=== PATIENT | male | born 1985 | race African-American/Black ===

== ENCOUNTER 2022-05-01 14:10 | Emergency (ER) | payer BC ==
--- OUTSIDE RECORDS SUMMARY | 2022-05-01 14:28 | XMS REPORT | Continuity of Care Document ---
:1985 Author Organization [facility] t Address [address] [place] [address] Care Team Providers Name Role Phone Chato Phillips Attending Clinician Chato Phillips Admitting Clinician Problems Condition Condition Condition Status Onset Resolution Last Treating Co mments Source Name Details Category Date Date Treatment Clinician Date Knee pain, Knee Condition Active 2013-052014-03-22 Memoria bilateral pain, 0-28 12:50:00 l bilateral 00:00: Sergey Active 00 03/22/2014 Condition 03/22/2014 [facility] Obesity Obesity Condition Active 2013-052014-03-22 Memoria Active 0-28 12:50:00 l 03/22/2014 00:00: Ferdinand n Condition 00 03/22/2014 [facility] Hyperlipid Hyperlipi Condition Active 2013-052014-03-22 Memoria emia demia 0-28 12:50:00 l Active 00:00: Sergey 03/22/2014 00 Condition 03/22/2014 [facility] BODY MASS BODY MASS Condition Active 2012-052014-03-22 Memoria INDEX INDEX 2-10 12:50:00 l 39.0-39.9 39.0-39.9 00:00: Herm raquel ADULT ADULT 00 Active 05/04/2013 Condition 03/22/2014 [facility] FURUNCLE FURUNCLE Condition Active 2012-052014-03-22 Memoria WITH WITH 2-10 12:50:00 l ABSCESS ABSCESS 00:00: Sergey Active 00 05/04/2013 Condition 03/22/2014 [facility] GI GI Condition Active 2012-052014-03-22 Mem oria BLEEDING BLEEDING 0-24 12:50:00 l Active 00:00: Sergey 03/18/2013 00 Condition 03/22/2014 [facility] ROTATOR ROTATOR Condition Active 2012-052014-03-22 Memoria CUFF CUFF 0 12:50:00 l SYNDROME, SYNDROME, 00:00: Herm raquel RIGHT RIGHT 00 Active 03/18/2013 Condition 03/22/2014 [facility] ERECTILE ERECTILE Condition Active 2012-052014-03-22 Memoria DYSFUNCTIO DYSFUNCTIO 0 12:50:00 l N, ORGANIC N, ORGANIC 00:00: He rmann Active 00 03/18/2013 Condition 03/22/2014 [facility] CHEST CHEST Condition Active 2014-03-22 Mem oria PAIN, PAIN, 12-23 12:50:00 l ATYPICAL ATYPICAL 00:00: Ferdinand fishman Active 00 12/23/2012 Condition 03/22/2014 [facility] HYPERTENSI HYPERTENS Condition Active 2014-03-22 Memoria ON, BENIGN ION, 01-12 12:50:00 l ESSENTIAL BENIGN 00:00: Sergey ESSENTIAL 00 Active 01/13/2012 Condition 03/22/2014 [facility] DIABETES DIABETES Condition Active 2014-03-22 Memoria MELLITUS, MELLITUS, 09-26 12:50:00 l TYPE II, TYPE II, 00:00: Ferdinand fishman UNCONTROLL UNCONTROLL 00 ED ED Active 09/27/2011 Condition 03/22/2014 [facility] DYSLIPOPRO DYSLIPOPR Condition Active 2014-03-22 Memoria TEINEMIA OTEINEMIA - 12:50:00 l Active 00:00: Sergey 09/27/2011 00 Condition 03/22/2014 [facility] HEALTH HEALTH Condition Active 2014-03-22 Me luke MAINTENANC MAINTENANC 5- 12:50:00 l E EXAM E EXAM 00:00: [place] Active 00 09/26/2011 Condition 03/22/2014 [facility] FATIGUE FATIGUE Condition Active 2014-03-22 Memoria Active 09-25 12:50:00 l 09/26/2011 00:00: Ferdinand fishman Condition 00 03/22/2014 [facility] SLEEP SLEEP Condition Active 2014-03-22 Mem oria APNEA APNEA - 12:50:00 l Active 00:00: [place] 09/26/2011 00 Condition 03/22/2014 [facility] Hypertensi Hypertens Problem Active 2019-08-08 Memoria ve wilfredo 1- 04:01:08 l disorder, disorder, 00:00: Herm raquel systemic systemic 00 arterial arterial (disorder) (disorder) Active 05/26/2010 Problem 08/08/2019 [facility] Chronic Chronic Problem Active 2019-08-08 Me moria sinusitis sinusitis 04:01:08 l (disorder) (disorder) He rmann Active Problem 08/08/2019 [facility] Deviated Deviated Problem Active 2019-08-08 Memoria nasal nasal 04:01:08 l septum septum [place] (disorder) (disorder) Active Problem 08/08/2019 [facility] Diabetes Diabetes Problem Active 2019-08-08 Memoria mellitus mellitus 04:01:08 l (disorder) (disorder) He rmann Active Problem 08/08/2019 hgb A1C 9.2 [facility] Hyperchole Problem Active 2019-08-08 M emoria sterolemia Hyperchole 04:01:08 l (disorder) sterolemia He rmann (disorder) Active Problem 08/08/2019 [facility] Body mass Body mass Problem Active 2016-09-17 Memoria index index 04:10:09 l (BMI) of (BMI) of Ferdinand fishman 40.0-44.9 40.0-44.9 in adult in adult Active Problem 09/17/2016 2..840.1 .[id number]. [id number] DM w/o DM w/o Diagnosis Active 2016-09-17 Me moria complicati complicati 04:10:09 l on type on type Sergey II, II, uncontroll uncontroll ed ed Active Diagnosis 09/17/2016 2.16.840.1 [id number]. [id number] 89 Benign Benign Problem Active 2016-09-17 Jeff sriram essential essential 04:10:09 l hypertensi hypertensi He rmann on on Active Problem 09/17/2016 2.16.840.1 .[id number]. [id number] 89 Elevated Elevated Diagnosis Active 2016-08-15 Memoria blood blood 04:10:31 l pressure pressure Ferdinand n reading reading Active Diagnosis 08/15/2016 2.16.840.1 .[id number]. [id number] 89 Seasonal Seasonal Problem Active 2016-09-17 Memoria allergic allergic 04:10:09 l rhinitis rhinitis Ferdinand n due to due to pollen pollen Active Problem 09/17/2016 2.16.840.1 .[id number]. [id number] 89 History of Past Illness Condition Condition Condition Status Onset Resolution Last Treating Co mments Source Name Details Category Date Date Treatment Clinician Date Chronic Chronic Problem 2019-08-08 2019-08-08 Memoria pansinusit pansinusit 3-13 04:01:08 04:01:08 l is is 17:00: [place] 08/06/2019 00 0 [facility] ABSCESS, ABSCESS, Condition Inactiv 2014-03-22 2014-03-22 Memoria GLUTEAL GLUTEAL e 10-20 12:50:00 12:50:00 l Inactive 00:00: Sergey 10/20/2013 00 Condition 03/22/2014 [facility] UPPER UPPER Condition Inactiv 2014-03-22 2014-03-22 Memoria RESPIRATOR RESPIRATOR e -16 12:50:00 12:50:00 l Y Y 00:00: Sergey INFECTION INFECTION 00 Inactive 06/10/2012 Condition 03/22/2014 [facility] ELEVATED ELEVATED Condition Inactiv 2014-03-22 2014-03-22 Memoria BP READING BP READING e 09-25 12:50:00 12:50:00 l WITHOUT DX WITHOUT DX 00:00: Genaro roth HYPERTENSI HYPERTENSI 00 ON ON Inactive 09/26/2011 Condition 03/22/2014 [facility] SCREENING SCREENING Condition Inactiv 2014-03-22 2014-03-22 Memoria FOR LIPOID FOR LIPOID e 09-25 12:50:00 12:50:00 l DISORDERS DISORDERS 00:00: Herm raquel Inactive 00 09/26/2011 Condition 03/22/2014 [facility] Allergies, Adverse Reactions, Alerts This patient has no known allergies or adverse reactions. Medications Ordered Filled Start Stop Current Ordering Indication Dosage Frequency Signature Comments Components Source Medication Medication Date Date Medication? Clinician (SIG) Name Name Oxymetazoli Yes 2 sprays, M emoria ne 3-13 [place], l hydrochlori 17:40: Nasal, Herm raquel de 0.5 00 q20min, MG/ML Nasal order [place] duration: [Afrin] 3 doses, first dose 08/06/19 12:40:00 CDT, stop date 08/06/19 13:39:00 CDT, each nostril Oxymetazoli 2020-0 Yes 2 sprays, M emoria ne 3-13 [place], l hydrochlori 17:40: Nasal, Herm raquel de 0.5 00 q20min, MG/ML Nasal order [place] duration: [Afrin] 3 doses, first dose 08/06/19 12:40:00 CDT, stop date 08/06/19 13:39:00 CDT, each nostril Misc 2020-0 No 200 mL, Memoria Medication 3-13 Soln-IV, l 17:30: IV, Once, Sergey 00 first dose 08/06/19 12:30:00 CDT, stop date 08/06/19 12:30:00 CDT Misc 2020-0 No 200 mL, Memoria Medication 3-13 Soln-IV, l 17:30: IV, Once, [place] first dose 08/06/19 12:30:00 CDT, stop date 08/06/19 12:30:00 CDT fentaNYL 2020-0 No 50 mcg = 1 Mem oria 3-13 mL, l 17:23: Injection, [place] 00 IV, Once, first dose 08/06/19 12:23:00 CDT, stop date 08/06/19 12:23:00 CDT ondansetron 2020-0 No 4 mg = 2 Me moria 3-13 mL, l 17:23: Injection, [place] 00 IV, Once, first dose 08/06/19 12:23:00 CDT, stop date 08/06/19 12:23:00 CDT fentaNYL 2020-0 No 50 mcg = 1 Mem oria 3-13 mL, l 17:23: Injection, Sergey 00 IV, Once, first dose 08/06/19 12:23:00 CDT, stop date 08/06/19 12:23:00 CDT ondansetron 2020-0 No 4 mg = 2 Me moria 3-13 mL, l 17:23: Injection, Sergey 00 IV, Once, first dose 08/06/19 12:23:00 CDT, stop date 08/06/19 12:23:00 CDT fentaNYL 2020-0 No 50 mcg = 1 Mem oria 3-13 mL, l 17:13: Injection, [place] 00 IV, Once, first dose 08/06/19 12:13:00 CDT, stop date 08/06/19 12:13:00 CDT fentaNYL 2020-0 No 50 mcg = 1 Mem oria 3-13 mL, l 17:13: Injection, Sergey 00 IV, Once, first dose 08/06/19 12:13:00 CDT, stop date 08/06/19 12:13:00 CDT esmolol 2020-0 No 50 mg = 5 Memor ia 3-13 mL, l 17:12: Injection, [place] 00 IV, Once, first dose 08/06/19 12:12:00 CDT, stop date 08/06/19 12:12:00 CDT esmolol 2020-0 No 50 mg = 5 Memor ia 3-13 mL, l 17:12: Injection, Sergey 00 IV, Once, first dose 08/06/19 12:12:00 CDT, stop date 08/06/19 12:12:00 CDT propofol 2020-0 No 729 mg = Memor ia 3-13 72.9 mL, l 17:05: Emulsion, [place] 00 IV, Once, first dose 08/06/19 12:05:00 CDT, stop date 08/06/19 12:05:00 CDT SUFentanil 2020-0 No 50 mcg = 1 M emoria + propofol 3-13 mL, l 500 mg 17:05: Injection, Tisha nn 00 IV, Once, first dose 08/06/19 12:05:00 CDT, stop date 08/06/19 12:05:00 CDT ketamine + 2020-0 No 125 mg = Mem oria propofol 3-13 2.5 mL, l 1250 mg 17:05: Injection, Herm raquel 00 IV, Once, first dose 08/06/19 12:05:00 CDT, stop date 08/06/19 12:05:00 CDT propofol 2020-0 No 729 mg = Memor ia 3-13 72.9 mL, l 17:05: Emulsion, [place] 00 IV, Once, first dose 08/06/19 12:05:00 CDT, stop date 08/06/19 12:05:00 CDT SUFentanil 2020-0 No 50 mcg = 1 M emoria + propofol 3-13 mL, l 500 mg 17:05: Injection, Tisha nn 00 IV, Once, first dose 08/06/19 12:05:00 CDT, stop date 08/06/19 12:05:00 CDT ketamine + 2020-0 No 125 mg = Mem oria propofol 3-13 2.5 mL, l 1250 mg 17:05: Injection, Herm raquel IV, Once, first dose 08/06/19 12:05:00 CDT, stop date 08/06/19 12:05:00 CDT Misc 2020-0 No 1,000 mL, Memoria Medication 3-13 Soln-IV, l 16:36: IV, Once, first dose 08/06/19 11:36:00 CDT, stop date 08/06/19 11:36:00 CDT Misc 2020-0 No 1,000 mL, Memoria Medication 3-13 Soln-IV, l 16:36: IV, Once, first dose 08/06/19 11:36:00 CDT, stop date 08/06/19 11:36:00 CDT ePHEDrine 2020-0 No 10 mg = Memor ia 3-13 0.2 mL, l 13:28: Injection, [place] 00 IV, Once, first dose 08/06/19 8:28:00 CDT, stop date 08/06/19 8:28:00 CDT ePHEDrine 2020-0 No 10 mg = Memor ia 3-13 0.2 mL, l 13:28: Injection, Sergey 00 IV, Once, first dose 08/06/19 8:28:00 CDT, stop date 08/06/19 8:28:00 CDT Misc 2020-0 No 1,000 mL, Memoria Medication 3-13 Soln-IV, l 13:25: IV, Once, first dose 08/06/19 8:25:00 CDT, stop date 08/06/19 8:25:00 CDT Misc 2020-0 No 1,000 mL, Memoria Medication 3-13 Soln-IV, l 13:25: IV, Once, first dose 08/06/19 8:25:00 CDT, stop date 08/06/19 8:25:00 CDT ePHEDrine 2020-0 No 10 mg = Memor ia 3-13 0.2 mL, l 13:23: Injection, IV, Once, first dose 08/06/19 8:23:00 CDT, stop date 08/06/19 8:23:00 CDT ePHEDrine 2020-0 No 10 mg = Memor ia 3-13 0.2 mL, l 13:23: Injection, IV, Once, first dose 08/06/19 8:23:00 CDT, stop date 08/06/19 8:23:00 CDT ePHEDrine 2020-0 No 5 mg = 0.1 Me moria 3-13 mL, l 13:17: Injection, IV, Once, first dose 08/06/19 8:17:00 CDT, stop date 08/06/19 8:17:00 CDT ePHEDrine 2020-0 No 5 mg = 0.1 Me moria 3-13 mL, l 13:17: Injection, IV, Once, first dose 08/06/19 8:17:00 CDT, stop date 08/06/19 8:17:00 CDT acetaminoph 2020-0 No 1,000 mg, M emoria en 3-13 Soln-IV, l 13:16: IV, Once, first dose 08/06/19 8:16:00 CDT, stop date 08/06/19 8:16:00 CDT glycopyrrol 2020-0 No 0.2 mg = 1 Memoria ate 3-13 mL, l 13:16: Injection, IV, Once, first dose 08/06/19 8:16:00 CDT, stop date 08/06/19 8:16:00 CDT acetaminoph 2020-0 No 1,000 mg, M emoria en 3-13 Soln-IV, l 13:16: IV, Once, first dose 08/06/19 8:16:00 CDT, stop date 08/06/19 8:16:00 CDT glycopyrrol 2020-0 No 0.2 mg = 1 Memoria ate 3-13 mL, l 13:16: Injection, Sergey 00 IV, Once, first dose 08/06/19 8:16:00 CDT, stop date 08/06/19 8:16:00 CDT dexamethaso 2020-0 No 8 mg = 2 Me moria ne 3-13 mL, l 13:06: Injection, [place] 00 IV, Once, first dose 08/06/19 8:06:00 CDT, stop date 08/06/19 8:06:00 CDT dexamethaso 2020-0 No 8 mg = 2 Me moria ne 3-13 mL, l 13:06: Injection, [place] 00 IV, Once, first dose 08/06/19 8:06:00 CDT, stop date 08/06/19 8:06:00 CDT ceFAZolin 2020-0 No 3 gm, Memoria 3-13 Soln-IV, l 13:01: IV Sergey 00 Piggyback, Once, first dose 08/06/19 8:01:00 CDT, stop date 08/06/19 8:01:00 CDT ceFAZolin 2020-0 No 3 gm, Memoria 3-13 Soln-IV, l 13:01: IV [place] 00 Piggyback, Once, first dose 08/06/19 8:01:00 CDT, stop date 08/06/19 8:01:00 CDT propofol 2020-0 No 200 mg = Memor ia 3-13 20 mL, l 12:51: Emulsion, [place] IV, Once, first dose 08/06/19 7:51:00 CDT, stop date 08/06/19 7:51:00 CDT lidocaine 2020-0 No 100 mg = 5 Me moria 3-13 mL, l 12:51: Injection, Sergey 00 IV, Once, first dose 08/06/19 7:51:00 CDT, stop date 08/06/19 7:51:00 CDT rocuronium 2020-0 No 5 mg = 0.5 M emoria 3-13 mL, l 12:51: Injection, [place] 00 IV, Once, first dose 08/06/19 7:51:00 CDT, stop date 08/06/19 7:51:00 CDT succinylcho 2020-0 No 180 mg = 9 Memoria line 3-13 mL, l 12:51: Injection, [place] 00 IV, Once, first dose 08/06/19 7:51:00 CDT, stop date 08/06/19 7:51:00 CDT propofol 2020-0 No 200 mg = Memor ia 3-13 20 mL, l 12:51: Emulsion, [place] 00 IV, Once, first dose 08/06/19 7:51:00 CDT, stop date 08/06/19 7:51:00 CDT lidocaine 2020-0 No 100 mg = 5 Me moria 3-13 mL, l 12:51: Injection, Sergey 00 IV, Once, first dose 08/06/19 7:51:00 CDT, stop date 08/06/19 7:51:00 CDT rocuronium 2020-0 No 5 mg = 0.5 M emoria 3-13 mL, l 12:51: Injection, [place] 00 IV, Once, first dose 08/06/19 7:51:00 CDT, stop date 08/06/19 7:51:00 CDT succinylcho 2020-0 No 180 mg = 9 Memoria line 3-13 mL, l 12:51: Injection, [place] 00 IV, Once, first dose 08/06/19 7:51:00 CDT, stop date 08/06/19 7:51:00 CDT fentaNYL 2020-0 No 50 mcg = 1 Mem oria 3-13 mL, l 12:50: Injection, [place] 00 IV, Once, first dose 08/06/19 7:50:00 CDT, stop date 08/06/19 7:50:00 CDT fentaNYL 2020-0 No 50 mcg = 1 Mem oria 3-13 mL, l 12:50: Injection, [place] 00 IV, Once, first dose 08/06/19 7:50:00 CDT, stop date 08/06/19 7:50:00 CDT midazolam 2020-0 No 2 mg = 2 Jeff sriram 3-13 mL, l 12:41: Injection, Sergey 00 IV, Once, first dose 08/06/19 7:41:00 CDT, stop date 08/06/19 7:41:00 CDT fentaNYL 2020-0 No 100 mcg = Jeff sriram 3-13 2 mL, l 12:41: Injection, [place] 00 IV, Once, first dose 08/06/19 7:41:00 CDT, stop date 08/06/19 7:41:00 CDT midazolam 2020-0 No 2 mg = 2 Jeff sriram 3-13 mL, l 12:41: Injection, Sergey 00 IV, Once, first dose 08/06/19 7:41:00 CDT, stop date 08/06/19 7:41:00 CDT fentaNYL 2020-0 No 100 mcg = Jeff sriram 3-13 2 mL, l 12:41: Injection, [place] 00 IV, Once, first dose 08/06/19 7:41:00 CDT, stop date 08/06/19 7:41:00 CDT LR 1,000 mL 2020-0 No 1,000 mL, M emoria 3-13 IV, 75 l 12:13: mL/hr, start date 08/06/19 7:13:00 CDT, 2.35, m2 Saline Lock 2020-0 No 10 mL, Jeff sriram Flush 3-13 Soln, IV l 12:13: Push, As Indicated PRN for flush, first dose 08/06/19 7:13:00 CDT Robinul 2020-0 No 0.2 mg = 1 Jeff sriram 3-13 mL, l 12:13: Injection, [place] 00 IV Push, Once PRN for bradycardi a, first dose 08/06/19 7:13:00 CDT Morphine 2020-0 No 2 mg = 0.2 Mem oria 3-13 mL, l 12:13: Injection, [place] 00 IV Push, q5min PRN for pain, first dose 08/06/19 7:13:00 CDT Dilaudid 2020-0 No 0.5 mg = Memor ia 3-13 0.5 mL, l 12:13: Injection, Sergey 00 IV Push, q10min PRN for pain severe (7-10), first dose 08/06/19 7:13:00 CDT Demerol HCl 2020-0 No 12.5 mg = M emoria 3-13 0.5 mL, l 12:13: Injection, [place] 00 IV Push, Once PRN for shivers, first dose 08/06/19 7:13:00 CDT Levalbutero 2020-0 No 0.63 mg = M emoria l 0.21 3-13 3 mL, l MG/ML 12:13: Soln, NEB, Ferdinand n Inhalant 00 Once PRN Solution for [Xopenex] wheezing, first dose 08/06/19 7:13:00 CDT Ondansetron 2019-0 No 4 mg = 2 Me moria 3-13 mL, l 12:13: Injection, IV Push, q15min PRN for nausea, order duration: 2 doses, first dose 08/06/19 7:13:00 CDT, stop date Limited # of times Promethazin 2020-0 No 12.5 mg = M emoria e 3-13 0.5 mL, l 12:13: Injection, IM, Once PRN for vomiting, first dose 08/06/19 7:13:00 CDT Labetalol 2019-0 No 5 mg = 1 Jeff sriram 3-13 mL, l 12:13: Injection, IV Push, As Indicated PRN for hypertensi on, first dose 08/06/19 7:13:00 CDT Hydralazine 2019-0 No 10 mg = Mem oria 3-13 0.5 mL, l 12:13: Injection, IV Push, As Indicated PRN for hypertensi on, first dose 08/06/19 7:13:00 CDT Diphenhydra 2019-0 No 25 mg = Mem oria mine 3-13 0.5 mL, l 12:13: Injection, IV Push, Once PRN for itching, first dose 08/06/19 7:13:00 CDT LR 1,000 mL 2020-0 No 1,000 mL, M emoria 3-13 IV, 75 l 12:13: mL/hr, start date 08/06/19 7:13:00 CDT, 2.35, m2 Saline Lock 2020-0 No 10 mL, Jeff sriram Flush 3-13 Soln, IV l 12:13: Push, As Indicated PRN for flush, first dose 08/06/19 7:13:00 CDT Robinul 2020-0 No 0.2 mg = 1 Jeff sriram 3-13 mL, l 12:13: Injection, [place] 00 IV Push, Once PRN for bradycardi a, first dose 08/06/19 7:13:00 CDT Morphine 2020-0 No 2 mg = 0.2 Mem oria 3-13 mL, l 12:13: Injection, [place] 00 IV Push, q5min PRN for pain, first dose 08/06/19 7:13:00 CDT Dilaudid 2020-0 No 0.5 mg = Memor ia 3-13 0.5 mL, l 12:13: Injection, [place] 00 IV Push, q10min PRN for pain severe (7-10), first dose 08/06/19 7:13:00 CDT Demerol HCl 2020-0 No 12.5 mg = M emoria 3-13 0.5 mL, l 12:13: Injection, Sergey 00 IV Push, Once PRN for shivers, first dose 08/06/19 7:13:00 CDT Levalbutero 2020-0 No 0.63 mg = M emoria l 0.21 3-13 3 mL, l MG/ML 12:13: Soln, NEB, Ferdinand n Inhalant 00 Once PRN Solution for [Xopenex] wheezing, first dose 08/06/19 7:13:00 CDT Ondansetron 2020-0 No 4 mg = 2 Me moria 3-13 mL, l 12:13: Injection, [place] 00 IV Push, q15min PRN for nausea, order duration: 2 doses, first dose 08/06/19 7:13:00 CDT, stop date Limited # of times Promethazin 2020-0 No 12.5 mg = M emoria e 3-13 0.5 mL, l 12:13: Injection, [place] 00 IM, Once PRN for vomiting, first dose 08/06/19 7:13:00 CDT Labetalol 2020-0 No 5 mg = 1 Jeff sriram 3-13 mL, l 12:13: Injection, Sergey 00 IV Push, As Indicated PRN for hypertensi on, first dose 08/06/19 7:13:00 CDT Hydralazine 2020-0 No 10 mg = Mem oria 3-13 0.5 mL, l 12:13: Injection, Sergey 00 IV Push, As Indicated PRN for hypertensi on, first dose 08/06/19 7:13:00 CDT Diphenhydra 2020-0 No 25 mg = Mem oria mine 3-13 0.5 mL, l 12:13: Injection, Sergey 00 IV Push, Once PRN for itching, first dose 08/06/19 7:13:00 CDT LR 1,000 mL 2020-0 No 1,000 mL, M emoria 3-13 IV, 30 l 11:03: mL/hr, Sergey start date 08/06/19 6:03:00 CDT, 2.36, m2 Lidocaine 2020-0 No 0.2 mL, Memor ia 2% 0.2 mL 3-13 Injection, l IV Start 11:03: Subcutaneo [facility] [[facility]] 00 us, Once PRN for other (see comment), first dose 08/06/19 6:03:00 CDT Oxymetazoli 2020-0 No 2 sprays, M emoria ne 3-13 [place], l hydrochlori 11:03: Nasal, Pre [place] de 0.5 00 Op, first MG/ML Nasal dose [place] 08/06/19 [Afrin] 6:03:00 CDT LR 1,000 mL 2020-0 No 1,000 mL, M emoria 3-13 IV, 30 l 11:03: mL/hr, start date 08/06/19 6:03:00 CDT, 2.36, m2 Lidocaine 2020-0 No 0.2 mL, Memor ia 2% 0.2 mL -13 Injection, l IV Start 11:03: Subcutaneo [facility] [[facility]] 00 us, Once PRN for other (see comment), first dose 08/06/19 6:03:00 CDT Oxymetazoli 2020-0 No 2 sprays, M emoria ne 3-13 [place], l hydrochlori 11:03: Nasal, Pre Sergey de 0.5 00 Op, first MG/ML Nasal dose [place] 08/06/19 [Afrin] 6:03:00 CDT simvastatin 2020-0 Yes 20 mg = 1 M emoria 20 mg oral 2-26 tabs, l tablet 21:50: Oral, [place] 00 Daily, high cholestero l simvastatin 2020-0 Yes 20 mg = 1 M emoria 20 mg oral 2- tabs, l tablet 21:50: Oral, Daily, high cholestero l dapaglifloz 2020-0 Yes 10 mg = 1 M emoria in 2-26 tabs, l propanediol 21:49: Oral, Tisha nn 10 MG Oral 00 Daily, DM Tablet [xiga] lisinopril 2020-0 Yes 20 mg = 1 Me moria 20 mg oral - tabs, l tablet 21:49: Oral, [place] 00 Daily, HTN dapaglifloz 2020-0 Yes 10 mg = 1 M emoria in - tabs, l propanediol 21:49: Oral, Tisha nn 10 MG Oral 00 Daily, DM Tablet [Farxiga] lisinopril 2020-0 Yes 20 mg = 1 Me moria 20 mg oral 2- tabs, l tablet 21:49: Oral, Daily, HTN Flonase Yes Arnold 2 spray in Me moria 4-25 [place] each l 04:10: nostril Medrol Yes Arnold as Memoria (Jeremy) 4-25 [place] directed l 04:10: Flonase Yes Arnold 2 spray in Me moria 4-25 [place] each l 04:10: nostril Medrol Yes Arnold as Memoria (Jeremy) 4-25 [place] directed l 04:10: Zyrtec-D 0 Yes Arnold 1 tablet Mem oria Allergy & 4-24 [place] l Congestion 00:00: Zyrtec-D 0 Yes Arnold 1 tablet Mem oria Allergy & 4-24 [place] l Congestion 00:00: Xigduo XR 0 Yes Arnold 1 tablet Me moria 3-22 [place] l 00:00: Losartan Yes Arnold 1 tablet Mem oria Potassium 3-22 [place] l 00:00: Xigduo XR 0 Yes Arnold 1 tablet Me moria 3-22 [place] l 00:00: Losartan Yes Arnold 1 tablet Mem oria Potassium 3-22 [place] l 00:00: [place] Blood Yes Arnold as Memoria Glucose 2-22 [place] directed l Test Strip 00:00: Sergey 00 Lancets Yes Arnold as Memoria 2-22 [place] directed l 00:00: [place] Yes Arnold 1 tablet Jeff sriram 2-22 [place] with meals l 00:00: [place] Blood Yes Arnold as Memoria Glucose 2-22 [place] directed l Monitor 00:00: Sergey System [place] Yes Arnold 1 tablet Jeff sriram 2-22 [place] with meals l 00:00: [place] Blood Yes Arnold as Memoria Glucose 2-22 [place] directed l Monitor 00:00: [place] System Blood Yes Arnold as Memoria Glucose 2-22 [place] directed l Test Strip 00:00: [place] 00 Lancets Yes Arnold as Memoria 2-22 [place] directed l 00:00: Sergey 00 SIMVASTATIN 2013- Yes Take one Me moria 40 MG TABS 0-29 tab po at l 00:00: bedtime for cholestero l SIMVASTATIN 2013-05 Yes Take one Me moria 40 MG TABS 0-29 tab po at l 00:00: bedtime for cholestero l METFORMIN 2013-05 Yes 1 PO twice Me moria HCL 1000 MG 0-28 a day for l TABS 00:00: blood sugar LISINOPRIL 2013-05 Yes one by Memor ia 10 MG TABS 0-28 mouth l 00:00: daily for Sergey blood pressure ONETOUCH 2013-05 Yes test bid Memor ia ULTRASOFT 0-28 l LANCETS 00:00: [place] [facility] [place] 2013-05 Yes Use with [facility] ULTRA BLUE 0-28 glucometer l STRP 00:00: to check blood sugars VOLTAREN 1 2013-05 Yes Apply over M [facility] % GEL 0-28 affected l 00:00: area 2-3 [place] 00 times a day for pain METFORMIN 2013-05 Yes 1 PO twice Me [facility] HCL 1000 MG 0-28 a day for l TABS 00:00: blood [place] 00 sugar LISINOPRIL 2013-05 Yes one by [facility] 10 MG TABS 0-28 mouth l 00:00: daily for Sergey 00 blood pressure ONETOUCH 2013-05 Yes test bid [facility] ULTRASOFT 0-28 l LANCETS 00:00: [place] MISC 00 ONETOUCH 2013-05 Yes Use with [facility] ULTRA BLUE 0-28 glucometer l STRP 00:00: to check [place] 00 blood sugars VOLTAREN 1 2013-05 Yes Apply over M [facility] % GEL 0-28 affected l 00:00: area 2-3 [place] 00 times a day for pain CEPHALEXIN No 1 po 4 [facility] 500 MG CAPS 6-03 times a l 00:00: day x 7 [place] 00 days BACTRIM DS No 2po twice Me [facility] TABS 6-03 a dayx 7 l 00:00: days [place] CEPHALEXIN No 1 po 4 [facility] 500 MG CAPS 6-03 times a l 00:00: day x 7 [place] 00 days BACTRIM DS No 2po twice [facility] TABS 6-03 a dayx 7 l 00:00: days [place] 00 [facility] 50 No take one Jeff sriram MG TABS 5-28 tablet l 00:00: every 8hrs Sergey 00 as needed for pain. CLEOCIN 150 No take two Me moria MG CAPS 5-28 tablets l 00:00: every 8 [place] 00 hours for infection. ADVIL TABS No as needed Me [facility] 5-28 l 00:00: [place] 00 ULTRA 50 Yes take one Jeff sriram MG TABS 5-28 tablet l 00:00: every 8hrs Sergey 00 as needed for pain. ULTRA 50 No take one Jeff sriram MG TABS 5-28 tablet l 00:00: every 8hrs [place] 00 as needed for pain. CLEOCIN 150 No take two Me moria MG CAPS 5-28 tablets l 00:00: every 8 [place] 00 hours for infection. ADVIL TABS No as needed Me [facility] 5-28 l 00:00: Serge[place] 00 ULTRA 50 Yes take one Jeff sriram MG TABS 5-28 tablet l 00:00: every 8hrs [facility] 00 as needed for pain. HYDROCODONE 2012-05 No 1 tab, q4h [facility] -ACETAMINOP 2-13 for pain l HEN 5-325 00:00: Sergey MG TABS 00 HYDROCODONE 2012-05 No 1 tab, q4h [facility] -ACETAMINOP 2-13 for pain l HEN 5-325 00:00: [place] MG TABS 00 HYDROCODONE 2012-05 No 1 tab, q4h [facility] -ACETAMINOP 2-13 for pain l HEN 5-325 00:00: Sergey MG TABS 00 HYDROCODONE 2012-05 No 1 tab, q4h [facility] -ACETAMINOP 2-13 for pain l HEN 5-325 00:00: Sergey MG TABS 00 HYDROCODONE 2012-05 No 1 tab, q4h [facility] -ACETAMINOP 2-13 for pain l HEN 5-325 00:00: Sergey MG TABS 00 HYDROCODONE 2012-05 No 1 tab, q4h [facility] -ACETAMINOP 2-13 for pain l HEN 5-325 00:00: Sergey MG TABS 00 BACTRIM DS 2012-05 No Take 1 tab M emoria 800-160 MG 2-10 po bid x10 l TABS 00:00: days for [place] 00 abscess. CHLORHEXIDI 2012-05 No Apply to Ri moria NE 2-10 affected l GLUCONATE 00:00: area daily He rmann 20 % SOLN 00 when showering. BACTRIM DS 2012-05 No Take 1 tab M emoria 800-160 MG 2-10 po bid x10 l TABS 00:00: days for [place]y 00 abscess. CHLORHEXIDI 2012-05 No Apply to Ri moria NE 2-10 affected l GLUCONATE 00:00: area daily He rmann 20 % SOLN 00 when showering. BACTRIM DS 2012-05 No Take 1 tab M emoria 800-160 MG 2-10 po bid x10 l TABS 00:00: days for [place] 00 abscess. CHLORHEXIDI 2012-05 No Apply to Ri moria NE 2-10 affected l GLUCONATE 00:00: area daily He rmann 20 % SOLN 00 when showering. BACTRIM DS 2012-05 No Take 1 tab M emoria 800-160 MG 2-10 po bid x10 l TABS 00:00: days for Sergey 00 abscess. CHLORHEXIDI 2012-05 No Apply to Me moria NE 2-10 affected l GLUCONATE 00:00: area daily He rmann 20 % SOLN 00 when showering. VIAGRA 2012-05 No 1/2 tablet M emoria MG TABS 0-24 po 30 l 00:00: minutes [place] 00 prior to sexual activity CYCLOBENZAP 2012-05 No 1 tab po Me moria RINE HCL 0-24 qhs prn - l 7.5 MG TABS 00:00: pain Ferdinand n 00 VIAGRA 2012-05 No 1/2 tablet M emoria MG TABS 0-24 po 30 l 00:00: minutes Sergey 00 prior to sexual activity CYCLOBENZAP 2012-05 No 1 tab po Me moria RINE HCL 0-24 qhs prn - l 7.5 MG TABS 00:00: pain Ferdinand n VIAGRA 2012-05 Yes 1/2 tablet M emoria MG TABS 0-24 po 30 l 00:00: minutes [place] 00 prior to sexual activity CYCLOBENZAP 2012-05 Yes 1 tab po Me moria RINE HCL 0-24 qhs prn - l 7.5 MG TABS 00:00: pain Ferdinand n 00 CYCLOBENZAP 2012-05 No 1 tab po Me moria RINE HCL 0-24 qhs prn - l 7.5 MG TABS 00:00: pain Ferdinand n VIAGRA 2012-05 No 1/2 tablet M emoria MG TABS 0-24 po 30 l 00:00: minutes Sergey 00 prior to sexual activity CYCLOBENZAP 2012-05 No 1 tab po Me moria RINE HCL 0-24 qhs prn - l 7.5 MG TABS 00:00: pain Ferdinand n VIAGRA 2012-05 Yes 1/2 tablet M emoria MG TABS 0-24 po 30 l 00:00: minutes [place] 00 prior to sexual activity CYCLOBENZAP 2012-05 Yes 1 tab po Me moria RINE HCL 0-24 qhs prn - l 7.5 MG TABS 00:00: pain Ferdinand n VIAGRA 2012-05 No 1/2 tablet M emoria MG TABS 0-24 po 30 l 00:00: minutes Sergey 00 prior to sexual activity CYCLOBENZAP 2012-05 No 1 tab po Me moria RINE HCL 0-24 qhs prn - l 7.5 MG TABS 00:00: pain Ferdinand n 00 CYCLOBENZAP 2012-05 No 1 tab po Me moria RINE HCL 0-24 qhs prn - l 7.5 MG TABS 00:00: pain Ferdinand n 00 PRAVACHOL No Take 1 Memori a 20 MG TABS 8-01 tablet by l 00:00: mouth at [place] 00 bedtime daily. PRAVACHOL No Take 1 [facility] a 20 MG TABS 8-01 tablet by l 00:00: mouth at [place] 00 bedtime daily. PRAVACHOL No Take 1 [facility] a 20 MG TABS 8-01 tablet by l 00:00: mouth at [place] 00 bedtime daily. PRAVACHOL No Take 1 [facility] a 20 MG TABS 8-01 tablet by l 00:00: mouth at [place] 00 bedtime daily. LISINOPRIL No Take 1 Memor ia 5 MG TABS 7-31 tablet by l 00:00: mouth [place] 00 daily for blood pressure. GLUCOPHAGE No Take 1 Memor ia 500 MG TABS 7-31 tablet by l 00:00: mouth Sergey 00 twice daily for diabetes. LISINOPRIL Yes Take 1 Memor ia 5 MG TABS 7-31 tablet by l 00:00: mouth Sergey 00 daily for blood pressure. GLUCOPHAGE Yes Take 1 Memor ia 500 MG TABS 7-31 tablet by l 00:00: mouth Sergey 00 twice daily for diabetes. LISINOPRIL Yes Take 1 Memor ia 5 MG TABS 7-31 tablet by l 00:00: mouth Sergey 00 daily for blood pressure. LISINOPRIL No Take 1 Memor ia 5 MG TABS 7-31 tablet by l 00:00: mouth Sergey 00 daily for blood pressure. GLUCOPHAGE No Take 1 Memor ia 500 MG TABS 7-31 tablet by l 00:00: mouth [place] 00 twice daily for diabetes. LISINOPRIL Yes Take 1 Memor ia 5 MG TABS 7-31 tablet by l 00:00: mouth Sergey 00 daily for blood pressure. GLUCOPHAGE Yes Take 1 Memor ia 500 MG TABS 7-31 tablet by l 00:00: mouth [place] 00 twice daily for diabetes. LISINOPRIL Yes Take 1 Memor ia 5 MG TABS 7-31 tablet by l 00:00: mouth Sergey 00 daily for blood pressure. CLARITIN-D No take one [facility] 12 HOUR 1-16 tab every l 5-120 MG 00:00: 12 hours Tisha nn [id number] 00 while cold symptoms persist CLARITIN-D No take one [facility] 12 HOUR 1-16 tab every l 5-120 MG 00:00: 12 hours Tisha nn [id number] 00 while cold symptoms persist LISINOPRIL No Take 1 po Me moria 5 MG TABS 8-20 daily for l 00:00: high blood [place] 00 pressure ONETOUCH No Take BS at Mem [facility] ULTRA BLUE 8-20 least BID l STRP 00:00: Sergey 00 LISINOPRIL Yes Take 1 po Me moria 5 MG TABS 8-20 daily for l 00:00: high blood Sergey 00 pressure ONETOUCH Yes Take BS at Mem [facility] ULTRA BLUE 8-20 least BID l STRP 00:00: [place] 00 LISINOPRIL Yes Take 1 po Me moria 5 MG TABS 8-20 daily for l 00:00: high blood [place] 00 pressure LISINOPRIL No Take 1 po Me moria 5 MG TABS 8-20 daily for l 00:00: high blood Sergey 00 pressure LISINOPRIL No Take 1 po Me moria 5 MG TABS 8-20 daily for l 00:00: high blood Sergey 00 pressure LISINOPRIL No Take 1 po Me moria 5 MG TABS 8-20 daily for l 00:00: high blood [place] 00 pressure ONETOUCH No Take BS at Mem [facility] ULTRA BLUE 8-20 least BID l STRP 00:00: [place] 00 LISINOPRIL Yes Take 1 po Me moria 5 MG TABS 8-20 daily for l 00:00: high blood Sergey 00 pressure ONETOUCH Yes Take BS at Mem [facility] ULTRA BLUE 8-20 least BID l STRP 00:00: [place] 00 LISINOPRIL No Take 1 po Me moria 5 MG TABS 8-20 daily for l 00:00: high blood Sergey 00 pressure LISINOPRIL Yes Take 1 po Me moria 5 MG TABS 8-20 daily for l 00:00: high blood Sergey 00 pressure LISINOPRIL No Take 1 po Me moria 5 MG TABS 8-20 daily for l 00:00: high blood [place] 00 pressure BLOOD No TRake bood [facility]ori a GLUCOSE 5-14 sugar at l MONITOR 00:00: least [place] SYSTEM KIT 00 twice a day. BLOOD Yes TRake bood [facility]ori a GLUCOSE 5-14 sugar at l MONITOR 00:00: least [place] SYSTEM KIT 00 twice a day. BLOOD Yes TRake bood [facility]ori a GLUCOSE 5-14 sugar at l MONITOR 00:00: least Sergey SYSTEM KIT 00 twice a day. BLOOD No TRake bood [facility]ori a GLUCOSE 5-14 sugar at l MONITOR 00:00: least Sergey SYSTEM KIT 00 twice a day. BLOOD Yes TRake bood [facility] a GLUCOSE 5-14 sugar at l MONITOR 00:00: least [place] SYSTEM KIT 00 twice a day. BLOOD Yes TRake bood [facility]ori a GLUCOSE 5-14 sugar at l MONITOR 00:00: least Sergey SYSTEM KIT 00 twice a day. METFORMIN No Take 1 po [facility] HCL 500 MG 5-04 q am for 1 l TABS 00:00: week then [place] 00 1 po BID for Diabetes METFORMIN Yes Take 1 po [facility] HCL 500 MG 5-04 q am for 1 l TABS 00:00: week then [place] 00 1 po BID for Diabetes METFORMIN Yes Take 1 po [facility] HCL 500 MG 5-04 q am for 1 l TABS 00:00: week then Sergey 00 1 po BID for Diabetes METFORMIN No Take 1 po [facility] HCL 500 MG 5-04 q am for 1 l TABS 00:00: week then [place] 00 1 po BID for Diabetes METFORMIN No Take 1 po [facility] HCL 500 MG 5-04 q am for 1 l TABS 00:00: week then [place] 00 1 po BID for Diabetes METFORMIN No Take 1 po [facility] HCL 500 MG 5-04 q am for 1 l TABS 00:00: week then [place] 00 1 po BID for Diabetes METFORMIN No Take 1 po [facility] HCL 500 MG 5-04 q am for 1 l TABS 00:00: week then Sergey 00 1 po BID for Diabetes METFORMIN Yes Take 1 po [facility] HCL 500 MG 5-04 q am for 1 l TABS 00:00: week then Sergey 00 1 po BID for Diabetes METFORMIN No Take 1 po [facility] HCL 500 MG 5-04 q am for 1 l TABS 00:00: week then [place] 00 1 po BID for Diabetes METFORMIN Yes Take 1 po [facility] HCL 500 MG 5-04 q am for 1 l TABS 00:00: week then Sergey 00 1 po BID for Diabetes METFORMIN No Take 1 po [facility] HCL 500 MG 5-04 q am for 1 l TABS 00:00: week then Sergey 00 1 po BID for Diabetes METFORMIN No Take 1 po [facility] HCL 500 MG 5-04 q am for 1 l TABS 00:00: week then [place] 00 1 po BID for Diabetes Vital Signs Vital Name Observation Time Observation Value Comments Source Respitory Rate 2019-08-06 18:28:00 [facility] [place] Systolic (mm Hg) 2019-08-06 18:28:00 Jeff rial [place] Diastolic (mm Hg) 2019-08-06 18:28:00 Mem o[facility] [place] Heart Rate 2019-08-06 18:00:00 [facility] [place] Respitory Rate 2019-08-06 18:00:00 [facility] al [place] Systolic (mm Hg) 2019-08-06 18:00:00 Jeff rial [place] Diastolic (mm Hg) 2019-08-06 18:00:00 Mem o[facility] [place] Heart Rate 2019-08-06 17:50:00 [facility] [place] Respitory Rate 2019-08-06 17:50:00 [facility] [place] Systolic (mm Hg) 2019-08-06 17:50:00 Jeff rial [place] Diastolic (mm Hg) 2019-08-06 17:50:00 Mem [facility] [place] Heart Rate 2019-08-06 17:40:00 [facility] Temperature Oral (F) 2019-08-06 17:20:00 37 Leana [facility] [place] Temperature Oral (F) 2019-08-06 11:06:00 36.7 Leana [facility] [place] Height 2019-08-06 11:06:00 177.80 cm [facility] [place] Height 2019-07-21 21:46:00 177.80 cm [facility] [place] Weight 2016-09-16 20:30:00 [facility] [place] Height 2016-09-16 20:30:00 [facility] [place] Temperature Oral (F) 2016-09-16 20:30:00 97.7 F [facility] [place] Diastolic (mm Hg) 2016-09-16 20:30:00 Mem [facility] [place] Systolic (mm Hg) 2016-09-16 20:30:00 Jeff rial [place] Weight 2016-08-14 16:00:00 [facility] [place] Height 2016-08-14 16:00:00 [facility] [place] Temperature Oral (F) 2016-08-14 16:00:00 98.2 F [facility] [place] Diastolic (mm Hg) 2016-08-14 16:00:00 Mem [facility] [place] Systolic (mm Hg) 2016-08-14 16:00:00 Jeff rial [place] Weight 2016-07-17 15:00:00 [facility] [place] Height 2016-07-17 15:00:00 [facility] [place] Temperature Oral (F) 2016-07-17 15:00:00 98.3 F [facility] [place] Diastolic (mm Hg) 2016-07-17 15:00:00 [facility] [place] Systolic (mm Hg) 2016-07-17 15:00:00 Jeff rial [place] Height 2014-03-22 15:57:41 [facility] [place] Weight 2014-03-22 15:57:41 [facility] [place] Temperature Oral (F) 2014-03-22 15:57:41 98.0 F [facility] [place] Respitory Rate 2014-03-22 15:57:41 [facility] [place] Heart Rate 2014-03-22 15:57:41 [facility] [place] Systolic (mm Hg) 2014-03-22 15:57:41 Jeff rial [place] Diastolic (mm Hg) 2014-03-22 15:57:41 [facility] [place] Height 2013-11-02 19:36:52 [facility] [place] Weight 2013-11-02 19:36:52 [facility] [place] Temperature Oral (F) 2013-11-02 19:36:52 96.1 F [facility] Respitory Rate 2013-11-02 19:36:52 [facility] [place] Heart Rate 2013-11-02 19:36:52 [facility] [place] Systolic (mm Hg) 2013-11-02 19:36:52 Jeff rial [place] Diastolic (mm Hg) 2013-11-02 19:36:52 Mem orial [place] Height 2013-10-29 16:03:51 [facility] [place] Weight 2013-10-29 16:03:51 [facility] [place] Temperature Oral (F) 2013-10-29 16:03:51 97.7 F [facility] [place] Respitory Rate 2013-10-29 16:03:51 [facility] [place] Heart Rate 2013-10-29 16:03:51 [facility] [place] Systolic (mm Hg) 2013-10-29 16:03:51 Jeff rial [place] Diastolic (mm Hg) 2013-10-29 16:03:51 Mem o[facility] [place] Height 2013-10-26 19:35:13 [facility] [place] Weight 2013-10-26 19:35:13 [facility] [place] Temperature Oral (F) 2013-10-26 19:35:13 97.0 F [facility] Systolic (mm Hg) 2013-10-26 19:35:13 Jeff rial [place] Diastolic (mm Hg) 2013-10-26 19:35:13 Mem o[facility] [place] Respitory Rate 2013-10-26 19:35:13 Memori al [place] Heart Rate 2013-10-26 19:35:13 [facility] [place] Height 2013-10-20 23:16:10 [facility] [place] Weight 2013-10-20 23:16:10 [facility] [place] Temperature Oral (F) 2013-10-20 23:16:10 98.5 F [facility] Respitory Rate 2013-10-20 23:16:10 [facility] al [place] Heart Rate 2013-10-20 23:16:10 [facility] [place] Systolic (mm Hg) 2013-10-20 23:16:10 Jeff rial [place] Diastolic (mm Hg) 2013-10-20 23:16:10 [facility] [place] Height 2013-05-18 00:51:30 [facility] [place] Weight 2013-05-18 00:51:30 [facility] [place] Temperature Oral (F) 2013-05-18 00:51:30 98.4 F [facility] [place] Respitory Rate 2013-05-18 00:51:30 Memori al [place] Heart Rate 2013-05-18 00:51:30 [facility] [place] Systolic (mm Hg) 2013-05-18 00:51:30 Jeff rial Sergey Diastolic (mm Hg) 2013-05-18 00:51:30 Mem orial [place] Height 2013-05-11 00:51:10 [facility] [place] Weight 2013-05-11 00:51:10 [facility] [place] Temperature Oral (F) 2013-05-11 00:51:10 98.2 F [facility] [place] Respitory Rate 2013-05-11 00:51:10 [facility] [place] Heart Rate 2013-05-11 00:51:10 [facility] [place] Systolic (mm Hg) 2013-05-11 00:51:10 Jeff rial Sergey Diastolic (mm Hg) 2013-05-11 00:51:10 Mem orial [place] Height 2013-05-07 23:14:20 [facility] [place] Weight 2013-05-07 23:14:20 [facility] Temperature Oral (F) 2013-05-07 23:14:20 98.2 F [facility] [place] Respitory Rate 2013-05-07 23:14:20 Mem[facility] al [place] Heart Rate 2013-05-07 23:14:20 [facility] [place] Systolic (mm Hg) 2013-05-07 23:14:20 Jeff rial [place] Diastolic (mm Hg) 2013-05-07 23:14:20 Mem orial [place] Height 2013-05-05 00:24:40 [facility] [place] Weight 2013-05-05 00:24:40 [facility] [place] Temperature Oral (F) 2013-05-05 00:24:40 99.3 F [facility] Respitory Rate 2013-05-05 00:24:40 [facility] al [place] Heart Rate 2013-05-05 00:24:40 [facility] [place] Systolic (mm Hg) 2013-05-05 00:24:40 Jeff rial [place] Diastolic (mm Hg) 2013-05-05 00:24:40 Mem [facility] [place] Weight 2013-03-18 19:30:40 [facility] [place] Temperature Oral (F) 2013-03-18 19:30:40 98.6 F [facility] Respitory Rate 2013-03-18 19:30:40 [facility] [place] Heart Rate 2013-03-18 19:30:40 [facility] [place] Systolic (mm Hg) 2013-03-18 19:30:40 Jeff rial Serge[place] Diastolic (mm Hg) 2013-03-18 19:30:40 [facility] [place] Height 2012-12-23 19:52:30 [facility] [place] Weight 2012-12-23 19:52:30 [facility] [place] Temperature Oral (F) 2012-12-23 19:52:30 97.2 F [facility] [place] Respitory Rate 2012-12-23 19:52:30 [facility] [place] Heart Rate 2012-12-23 19:52:30 [facility] [place] Systolic (mm Hg) 2012-12-23 19:52:30 Jeff rial [place] Diastolic (mm Hg) 2012-12-23 19:52:30 Mem [facility] [place] Height 2012-06-10 20:17:40 [facility] [place] Weight 2012-06-10 20:17:40 [facility] [place] Respitory Rate 2012-06-10 20:17:40 [facility] [place] Temperature Oral (F) 2012-06-10 20:17:40 98.1 F [facility] Systolic (mm Hg) 2012-06-10 20:17:40 Jeff rial [place] Diastolic (mm Hg) 2012-06-10 20:17:40 Mem [facility] [place] Heart Rate 2012-06-10 20:17:40 [facility] Height 2012-01-13 15:45:00 [facility] Weight 2012-01-13 15:45:00 [facility] [place] Temperature Oral (F) 2012-01-13 15:45:00 98.0 F [facility] Respitory Rate 2012-01-13 15:45:00 [facility] al [place] Heart Rate 2012-01-13 15:45:00 [facility] [place] Systolic (mm Hg) 2012-01-13 15:45:00 Jeff rial [place] Diastolic (mm Hg) 2012-01-13 15:45:00 Mem orial [place] Height 2011-10-07 15:02:40 [facility] [place] Height 2011-09-26 14:38:40 Radha Rincon Weight 2011-09-26 14:38:40 Radha Rincon Temperature Oral (F) 2011-09-26 14:38:40 98.5 F [facility] [place] Respitory Rate 2011-09-26 14:38:40 Soniya Cline Heart Rate 2011-09-26 14:38:40 Radha [place] Systolic (mm Hg) 2011-09-26 14:38:40 Jeff bhatiarose [place] Diastolic (mm Hg) 2011-09-26 14:38:40 [facility] orial [place] Procedures Procedure Date / Time Performed Performing Clinician [facility] e NASAL ENDOSCOPY 2019-08-06 13:16:00 Radha Her hopkins W/MAXILLARY ANTROSTOMY W/REM.OF TISSUE MAXILLARY SINUS 78182 (Bilateral)<sup>1</sup> NASAL/SINUS ENDOSCOPY 2019-08-06 13:16:00 Soniya Cline W/BIOPSY/POLYPECTOMY OR DEBRIDEMENT 05902 (Bilateral)<sup>2</sup> NASAL/SINUS ENDOSCOPY 2019-08-06 13:16:00 Soniya Cline W/ETHMOIDECTOMY W/SPHENOIDOTOMY W/REMOVAL OF TISSUE 87245 (Bilateral)<sup>3</sup> NASAL/SINUS ENDOSCOPY 2019-08-06 13:16:00 Soniya Cline W/FRONTAL SINUS EXPLORATION 68336 (Bilateral)<sup>4</sup> SEPTOPLASTY OR SUBMUCOUS 2019-08-06 13:16:00 [facility] orial Sergey RESECTION W/ OR W/O CARTILAGE [id number] GRAFT 51068 (N/A)<sup>5</sup> STEREOTACTIC COMPUTER 2019-08-06 13:16:00 Soniya Cline ASSISTED NAVIGATIONAL PROCEDURE 32429 (N/A)<sup>6</sup> SUBMUCUS RESECTION 2019-08-06 13:16:00 Radha Rincon INFERIOR TURBINATE/PARTIAL OR COMPLETE 95912 (Bilateral)<sup>7</sup> Pilonidal cyst 2013-05-26 00:00:00 Radha hopkins diabetic foot check 2012-01-13 15:45:00 Radha Rincon monofilament, foot check, 2012-01-13 15:45:00 Ri tanner Rincon left monofilament, foot check, 2012-01-13 15:45:00 Me morial [place] right genitourinary review of 2011-09-26 14:38:40 Jeff josé Rincon systems, E&M Wrist surgery<sup>8</sup> 2005-05-26 00:00:00 Me alphonsechantale Sergey Encounters Start End Encounter Admission Attending Care Care Encounter Source Date/Time Date/Time Type Type Clinicians Facility Department ID 2020-09-20 2020-09-20 Outpatient FBCOVID FBCOVID [id number] FBCOVID 00:00:00 00:00:00 [id number] 2019-08-06 Outpatient nullFlavo [facility] [id number] Memoria 10:48:16 18:45:00 [facility] 2019-08-06 2019-08-06 Outpatient nullFlavo [facility] [id number] Memoria 10:48:16 18:45:00 [facility] 2019-08-06 2019-08-06 Outpatient nullFlavo [facility] [id number] Memoria 05:48:16 13:45:00 r [facility] 2019-08-06 2019-08-06 Outpatient [facility], [id number] 05:48:16 13:45:00 [place] 8 2016-09-16 2016-09-16 Outpatient [facility] [id number] eClinic 15:30:00 15:30:00 [facility] r 2016-08-15 2016-08-15 Outpatient Family Family [id number] eClinic 15:21:00 15:21:00 [facility] 2016-08-14 2016-08-14 Outpatient [facility] [id number] eClinic 11:00:00 11:00:00 [facility] r 2016-08-12 2016-08-12 Outpatient Family [facility] [id number] eClinic 10:35:00 10:35:00 [facility] r 2016-07-17 2016-07-17 Outpatient Family Family [id number] eClinic 10:00:00 10:00:00 Practic [facility] r 2014-03-22 2014-03-22 Lab Report [facility] 17 [id number] Memoria 00:00:00 00:00:00 r at [place] [id number] [facility] 2014-03-22 2014-03-22 Lab Report [facility] 17 [id number] Memoria 00:00:00 00:00:00 r at [place] [id number] [facility] [place] 2013-10-20 2013-10-20 Office [facility] [id number] Memoria 00:00:00 00:00:00 Visit r at [place] [id number] l [facility] [place] After Hours 2013-10-20 2013-10-20 [facility] [id number] Memoria 00:00:00 00:00:00 Visit r at [place] [id number] [facility] [place] After Hours 2013-05-17 2013-05-17 [facility] [id number] Memoria 00:00:00 00:00:00 Visit r at [place] [id number] [facility] [place] After Hours 2013-05-17 2013-05-17 [facility] [id number] Memoria 00:00:00 00:00:00 Visit r at [place] 934376 l [facility] [place] After Hours 2013-05-10 2013-05-10 [facility] [id number] Memoria 00:00:00 00:00:00 Visit r at [place] 855871 l [facility] [place] After Hours 2013-05-10 2013-05-10 [facility] [id number] Memoria 00:00:00 00:00:00 Visit r at [place] [id number] l [facility] After Hours 2013-05-07 2013-05-07 [facility] [id number] Memoria 00:00:00 00:00:00 Visit r at [place] [id number] [facility] [place] After Hours 2013-05-07 2013-05-07 [facility] [id number] Memoria 00:00:00 00:00:00 Visit r at [place] [id number] l [facility] [place] After Hours 2013-05-04 2013-05-04 [facility] [id number] Memoria 00:00:00 00:00:00 Visit r at [place] 408259 l [facility] 2013-05-04 2013-05-04 [facility] [id number] Memoria 00:00:00 00:00:00 Visit r at [place] [id number] [facility] Pod 2013-03-23 2013-03-23 Lab Report [facility] 16 [id number] Memoria 00:00:00 00:00:00 r at [place] [id number] [facility] Pod 2013-03-23 2013-03-23 Lab Report [facility] 16 [id number] Memoria 00:00:00 00:00:00 r at Sugar [id number] [facility] Pod 2013-03-18 2013-03-18 [facility] [id number] Memoria 00:00:00 00:00:00 Visit r at [place] [id number] l [facility] Pod 2013-03-18 2013-03-18 Lab Report [facility] [id number] Memoria 00:00:00 00:00:00 r at [place] [id number] [facility] Pod 2013-03-18 2013-03-18 [facility] [id number] Memoria 00:00:00 00:00:00 Visit r at Sugar [id number] [facility] Pod 2013-03-18 2013-03-18 Lab Report [facility] 16 [id number] Memoria 00:00:00 00:00:00 r at [place] [id number] l [facility] Pod 2012-12-23 2012-12-23 [facility] [id number] Memoria 00:00:00 00:00:00 Visit r at Sugar [id number] l [facility] Pod 2012-12-23 2012-12-23 Lab Report [facility] 16 [id number] Memoria 00:00:00 00:00:00 r at [place] [id number] l [facility] Pod 2012-12-23 2012-12-23 Lab Report [facility] 16 [id number] Memoria 00:00:00 00:00:00 r at [place] [id number] l [facility] Pod 2012-12-23 2012-12-23 [facility] [id number] Memoria 00:00:00 00:00:00 Visit r at Sugar 785129 l [facility] Pod 2012-06-10 2012-06-10 [facility] [id number] Memoria 00:00:00 00:00:00 Visit r at [place] [id number] l [facility] Pod 2012-06-10 2012-06-10 [facility] [id number] Memoria 00:00:00 00:00:00 Visit r at [place] [id number] l [facility] Pod 2012-01-13 2012-01-13 [facility] [id number] Memoria 00:00:00 00:00:00 Visit r at [place] [id number] l [facility] Pod 2012-01-13 2012-01-13 Lab Report [facility] 16 [id number] Memoria 00:00:00 00:00:00 r at Sugar [id number] l [facility] Pod 2012-01-13 2012-01-13 Lab Report [facility] 16 [id number] Memoria 00:00:00 00:00:00 r at [place] [id number] l [facility] Pod 2012-01-13 2012-01-13 [facility] [id number] Memoria 00:00:00 00:00:00 Visit r at [place] [id number] l [facility] Pod 2011-10-07 2011-10-07 [facility] [id number] Memoria 00:00:00 00:00:00 Visit r at Sugar [id number] l [facility] Pod 2011-10-07 2011-10-07 [facility] [id number] Memoria 00:00:00 00:00:00 Visit r at Sugar [id number] l [facility] Pod 2011-10-02 2011-10-02 Lab Report [facility] 16 [id number] Memoria 00:00:00 00:00:00 r at [place] [id number] l [facility] Pod 2011-10-02 2011-10-02 Lab Report [facility] 16 [id number] Memoria 00:00:00 00:00:00 r at [place] [id number] l [facility] Pod 2011-09-26 2011-09-26 Lab Report [facility] 16 [id number] Memoria 00:00:00 00:00:00 r at Sugar [id number] [facility] Pod 2011-09-26 2011-09-26 Lab Report [facility] 16 [id number] [facility] 00:00:00 00:00:00 r at Sugar [id number] [facility] Pod Results Test Description Test Time Test Comments Results Result Comments Source LABORATORY 2019-08-06 17:45:00 Test Item Value Reference Range Interpretation Comme nts Blood Glucose, Capillary (test code = Blood Glucose, Capillary) 157 74-106 [place] [id number] 17:45:00 Test Item Value Reference Range Interpretation Comments Blood Glucose, Capillary (test code = 157 74-106 Blood Glucose, Capillary) [place] [id number] 11:26:00 Test Item Value Reference Range Interpretation Comments Blood Glucose, Capillary (test code = 96 74-106 Blood Glucose, Capillary) [place] [id number] 11:26:00 Test Item Value Reference Range Interpretation Comments Blood Glucose, Capillary (test code = 96 74-106 [facility], Capillary) [id number] 22:29:00 Test Item Value Reference Range Interpretation Comments Glucose Lvl (test code = Glucose Lvl) 241 70-99 [place] [id number] 22:29:00 Test Item Value Reference Range Interpretation Comments BUN (test code = BUN) 6 7-22 [place] [id number] 22:29:00 Test Item Value Reference Range Interpretation Comments Creatinine (test code = Creatinine) 0.62 0.50-1.40 [id number] 22:29:00 Test Item Value Reference Range Interpretation Comments Sodium Level (test code = Sodium Level) 138 135-145 [facility]CidgouoXWJLPKWJAE7631-19-49 22:29:00 Test Item Value Reference Range Interpretation Comments Potassium Level (test code = Potassium 4.0 3.5-5.1 Level) [place]74200-02-26 22:29:00 Test Item Value Reference Range Interpretation Comments Chloride Level (test code = Chloride 106 95-109 Level) [place] 774200-02-26 22:29:00 Test Item Value Reference Range Interpretation Comments Carbon Dioxide Level (test code = 27 24-32 Carbon Dioxide Level) [facility] HospitalSkquypoHGSJXCNQPD1036-53-15 22:29:00 Test Item Value Reference Range Interpretation Comments AGAP (test code = AGAP) 9.0 10.0-20.0 [place] 774200-02-26 22:29:00 Test Item Value Reference Range Interpretation Comments Calcium Level (test code = Calcium 8.8 8.5-10.5 Level) [place] 774200-02-26 22:29:00 Test Item Value Reference Range Interpretation Comments eGFR (test code = eGFR) 150 [place] 774200-02-26 22:29:00 Test Item Value Reference Range Interpretation Comments Results (test code = Reported (07/21/19 4:29 Results) PM) [place] [address]-02-26 22:29:00 Test Item Value Reference Range Interpretation Comments White Blood Count (test code = White 11.6 3.7-10.4 Blood Count) [place] 774200-02-26 22:29:00 Test Item Value Reference Range Interpretation Comments Red Blood Cell Count (test code = Red 5.30 4.70-6.10 Blood Cell Count) [place] 774200-02-26 22:29:00 Test Item Value Reference Range Interpretation Comments Hemoglobin (test code = Hemoglobin) 15.4 14.0-18.0 [place] 774200-02-26 22:29:00 Test Item Value Reference Range Interpretation Comments Hematocrit (test code = Hematocrit) 46.7 42.0-54.0 [place] 774200-02-26 22:29:00 Test Item Value Reference Range Interpretation Comments MCV (test code = MCV) 88.0 80.0-94.0 [place] [address]-02-26 22:29:00 Test Item Value Reference Range Interpretation Comments MCH (test code = MCH) 29.0 pg 27.0-31.0 [place] 774200-02-26 22:29:00 Test Item Value Reference Range Interpretation Comments MCHC (test code = MCHC) 33.0 32.0-36.0 [place] 774200-02-26 22:29:00 Test Item Value Reference Range Interpretation Comments RDW (test code = RDW) 13.9 11.5-14.5 [place] 774200-02-26 22:29:00 Test Item Value Reference Range Interpretation Comments Platelet (test code = Platelet) 257 133-450 [place] 774200-02-26 22:29:00 Test Item Value Reference Range Interpretation Comments MPV (test code = MPV) 9.6 7.4-10.4 [place] 774200-02-26 22:29:00 Test Item Value Reference Range Interpretation Comments Results (test code = Reported (07/21/19 4:29 Results) PM) [place] 774200-02-26 22:29:00 Test Item Value Reference Range Interpretation Comments Hgb A1c (test code = Hgb A1c) 9.2 [place] 774200-02-26 22:29:00 Test Item Value Reference Range Interpretation Comments Results (test code = Reported (07/21/19 4:29 Results) PM) [place] 774200-02-26 22:29:00 Test Item Value Reference Range Interpretation Comments Neutrophil % (test code = Neutrophil %) 67.9 45.0-75.0 [place] 774200-02-26 22:29:00 Test Item Value Reference Range Interpretation Comments Monocyte % (test code = Monocyte %) 7.0 2.0-12.0 [place] 774200-02-26 22:29:00 Test Item Value Reference Range Interpretation Comments Lymphocyte % (test code = Lymphocyte %) 20.8 20.0-40.0 [place] 774200-02-26 22:29:00 Test Item Value Reference Range Interpretation Comments Eosinophil # (test code 3.9 See_Comment [Au tomated message] The = Eosinophil #) system which generated this result tra nsmitted reference range : <=4.0. The reference r margaux was not used to int erpret this result as normal/abnormal . [facility] HospitalSmksydpKVNRRUBBXS5535-15-23 22:29:00 Test Item Value Reference Range Interpretation Comments Glucose Lvl (test code = Glucose Lvl) 241 70-99 [place] 774200-02-26 22:29:00 Test Item Value Reference Range Interpretation Comments BUN (test code = BUN) 6 7-22 [facility] HospitalOsewieiZIZWFQWRUU1760-69-52 22:29:00 Test Item Value Reference Range Interpretation Comments Basophil % (test code = 0.4 See_Comment [Au tomated message] The Basophil %) system which ge nerated this result tra nsmitted reference range : <=1.0. The reference r margaux was not used to int erpret this result as normal/abnormal . [facility] HospitalTcqxfvqKURZNXMNKZ9032-92-30 22:29:00 Test Item Value Reference Range Interpretation Comments Creatinine (test code = Creatinine) 0.62 0.50-1.40 [place] 774200-02-26 22:29:00 Test Item Value Reference Range Interpretation Comments Sodium Level (test code = Sodium Level) 138 135-145 [place] 774200-02-26 22:29:00 Test Item Value Reference Range Interpretation Comments Potassium Level (test code = Potassium 4.0 3.5-5.1 Level) [place] 774200-02-26 22:29:00 Test Item Value Reference Range Interpretation Comments Chloride Level (test code = Chloride 106 95-109 Level) [facility] HospitalGawfcwfTPLJHKBAJK2236-50-70 22:29:00 Test Item Value Reference Range Interpretation Comments Carbon Dioxide Level (test code = 27 24-32 Carbon Dioxide Level) [place] 774200-02-26 22:29:00 Test Item Value Reference Range Interpretation Comments AGAP (test code = AGAP) 9.0 10.0-20.0 [place] 774200-02-26 22:29:00 Test Item Value Reference Range Interpretation Comments Calcium Level (test code = Calcium 8.8 8.5-10.5 Level) [place] 774200-02-26 22:29:00 Test Item Value Reference Range Interpretation Comments eGFR (test code = eGFR) 150 [place] 774200-02-26 22:29:00 Test Item Value Reference Range Interpretation Comments Results (test code = Reported (07/21/19 4:29 Results) PM) [place] 774200-02-26 22:29:00 Test Item Value Reference Range Interpretation Comments White Blood Count (test code = White 11.6 3.7-10.4 Blood Count) [place] 774200-02-26 22:29:00 Test Item Value Reference Range Interpretation Comments Neutrophil # (test code = Neutrophil #) 7.8 1.5-8.1 [facility] HospitalVbeamvzYQHSYKMQHQ2162-72-02 22:29:00 Test Item Value Reference Range Interpretation Comments Red Blood Cell Count (test code = Red 5.30 4.70-6.10 Blood Cell Count) [facility] HospitalEfymjonMQPTTCCHGP2843-84-98 22:29:00 Test Item Value Reference Range Interpretation Comments Hemoglobin (test code = Hemoglobin) 15.4 14.0-18.0 [facility] HospitalRvvoljrLSTODIEMOP6138-20-67 22:29:00 Test Item Value Reference Range Interpretation Comments Hematocrit (test code = Hematocrit) 46.7 42.0-54.0 [facility] HospitalAliibwdSXGXMKPTNU9234-25-07 22:29:00 Test Item Value Reference Range Interpretation Comments MCV (test code = MCV) 88.0 80.0-94.0 [facility] HospitalYqvktfoCRHFGJSHVW1969-08-77 22:29:00 Test Item Value Reference Range Interpretation Comments MCH (test code = MCH) 29.0 pg 27.0-31.0 [facility] HospitalYnfetqgKIRRLBXPUH5491-93-68 22:29:00 Test Item Value Reference Range Interpretation Comments MCHC (test code = MCHC) 33.0 32.0-36.0 [facility] HospitalPlxlqyvJEVALDYYQS2055-97-62 22:29:00 Test Item Value Reference Range Interpretation Comments RDW (test code = RDW) 13.9 11.5-14.5 [facility] HospitalZkugcfrKQOILKWNSR3261-97-76 22:29:00 Test Item Value Reference Range Interpretation Comments Platelet (test code = Platelet) 257 133-450 [facility] HospitalColtcirLVDNYMUNWQ5783-93-73 22:29:00 Test Item Value Reference Range Interpretation Comments MPV (test code = MPV) 9.6 7.4-10.4 [facility] HospitalJkunvscUJBZUYBISX9858-96-73 22:29:00 Test Item Value Reference Range Interpretation Comments Results (test code = Reported (07/21/19 4:29 Results) PM) [facility] HospitalUijleybEITJVPFVJH5909-54-43 22:29:00 Test Item Value Reference Range Interpretation Comments Lymphocyte # (test code = Lymphocyte #) 2.4 1.0-5.5 [facility] HospitalCgpshruWENCSYLJJV4468-88-79 22:29:00 Test Item Value Reference Range Interpretation Comments Hgb A1c (test code = Hgb A1c) 9.2 [facility] HospitalJqnrxrsAXFDZZHHUI4607-08-16 22:29:00 Test Item Value Reference Range Interpretation Comments Results (test code = Reported (07/21/19 4:29 Results) PM) [place] 774200-02-26 22:29:00 Test Item Value Reference Range Interpretation Comments Neutrophil % (test code = Neutrophil %) 67.9 45.0-75.0 [place] 774200-02-26 22:29:00 Test Item Value Reference Range Interpretation Comments Monocyte % (test code = Monocyte %) 7.0 2.0-12.0 [facility] HospitalNmdfhefBONERFYEAY2467-47-52 22:29:00 Test Item Value Reference Range Interpretation Comments Lymphocyte % (test code = Lymphocyte %) 20.8 20.0-40.0 [place] 774200-02-26 22:29:00 Test Item Value Reference Range Interpretation Comments Eosinophil # (test code 3.9 See_Comment [Au MoSyncated message] The = Eosinophil #) system which generated this result tra nsmitted reference range : <=4.0. The reference r margaux was not used to int erpret this result as normal/abnormal . [facility] HospitalIaniqysQRJXSFHFCK1582-49-58 22:29:00 Test Item Value Reference Range Interpretation Comments Basophil % (test code = 0.4 See_Comment [Au MoSyncated message] The Basophil %) system which ge nerated this result tra nsmitted reference range : <=1.0. The reference r margaux was not used to int erpret this result as normal/abnormal . [facility] HospitalOibetyxAFXZTLCKMZ3624-94-90 22:29:00 Test Item Value Reference Range Interpretation Comments Neutrophil # (test code = Neutrophil #) 7.8 1.5-8.1 [facility] HospitalFvpflimAZMBHABMTL8025-56-62 22:29:00 Test Item Value Reference Range Interpretation Comments Lymphocyte # (test code = Lymphocyte #) 2.4 1.0-5.5 [facility] HospitalPzgxvmpNGEGFAGBKG1323-43-39 22:29:00 Test Item Value Reference Range Interpretation Comments Monocyte # (test code = 0.8 See_Comment [Au tomated message] The Monocyte #) system which ge nerated this result tra nsmitted reference range : <=0.8. The reference r margaux was not used to int erpret this result as normal/abnormal . [facility] HospitalYkudibvRAOCAVZIZO1645-05-58 22:29:00 Test Item Value Reference Range Interpretation Comments Monocyte # (test code = 0.8 See_Comment [Au tomated message] The Monocyte #) system which ge nerated this result tra nsmitted reference range : <=0.8. The reference r margaux was not used to int erpret this result as normal/abnormal . [facility] CampusBzqgqtsUYNVKLXWZU7393-66-45 22:29:00 Test Item Value Reference Range Interpretation Comments Eosinophil % (test code 0.4 See_Comment [Au tomated message] The = Eosinophil %) system which generated this result tra nsmitted reference range : <=0.5. The reference r margaux was not used to int erpret this result as normal/abnormal . [facility] HospitalKetertgPBJZWZZTYZ8705-40-48 22:29:00 Test Item Value Reference Range Interpretation Comments Basophil # (test code = 0.1 See_Comment [Au tomated message] The Basophil #) system which ge nerated this result tra nsmitted reference range : <=0.2. The reference r margaux was not used to int erpret this result as normal/abnormal . [facility] HospitalYleeunvHLYCPXBGUN3998-64-33 22:29:00 Test Item Value Reference Range Interpretation Comments Results (test code = Reported (07/21/19 4:29 Results) PM) [place] 774200-02-26 22:29:00 Test Item Value Reference Range Interpretation Comments Eosinophil % (test code 0.4 See_Comment [Au tomated message] The = Eosinophil %) system which generated this result tra nsmitted reference range : <=0.5. The reference r margaux was not used to int erpret this result as normal/abnormal . [facility] HospitalNbelvuwLGSRIXYBML8767-84-37 22:29:00 Test Item Value Reference Range Interpretation Comments Basophil # (test code = 0.1 See_Comment [Au tomated message] The Basophil #) system which ge nerated this result tra nsmitted reference range : <=0.2. The reference r margaux was not used to int erpret this result as normal/abnormal . [facility] CampusJeppemmMWWUXRVKMO2968-59-98 22:29:00 Test Item Value Reference Range Interpretation Comments Results (test code = Reported (07/21/19 4:29 Results) PM) [facility] HospitalWywtvvtAjxfqnvan3647-73-95 17:50:00 Test Item Value Reference Range Interpretation Comments HGBA1C (test code = 8.5 See_Comment [Automa bushra message] The HGBA1C) system which ge nerated this result transmit bushra reference range : <=5.6. The reference range was not used to interpr et this result as nina l/abnormal. [facility]AjuoghrDmiafgqwc2468-42-04 17:50:00 Test Item Value Reference Range Interpretation Comments CHOLESTEROL (test code = 217 See_Comment [A utomated message] The CHOLESTEROL) system which ge nerated this result tra nsmitted reference range : <=199. The reference r margaux was not used to int erpret this result as normal/abnormal . [facility] CenterJktjqgbPlkoieecs5200-44-66 17:50:00 Test Item Value Reference Range Interpretation Comments HDL (test code = HDL) 40 [facility] HospitalEemhcadTwifetdce5096-04-57 17:50:00 Test Item Value Reference Range Interpretation Comments LDL (test code = See Note mg/dL See_Comment [Automat ed message] LDL) The system whic h generated this result transmitted ref erence range: <=99. Th e reference range was not used to interpr et this result as normal/abnormal . [facility] CenterUkilxrqLgcpwrzlv9587-23-12 17:50:00 Test Item Value Reference Range Interpretation Comments SODIUM (test code = SODIUM) 138 MEQ/L 135-145 [facility] CenterItkrracCpqsanmrx1828-20-24 17:50:00 Test Item Value Reference Range Interpretation Comments POTASSIUM (test code = POTASSIUM) 4.2 MEQ/L 3.5-5.1 [facility] CenterNqhkqcrIcmqranyj3551-23-11 17:50:00 Test Item Value Reference Range Interpretation Comments CREATININE (test code = CREATININE) 0.7 0.5-1.4 [facility] HospitalXovjvwsEkefxkmaw1979-99-62 17:50:00 Test Item Value Reference Range Interpretation Comments BUN (test code = BUN) 10 7-22 [facility] CenterKrnefewIrkdfmeup2356-61-08 17:50:00 Test Item Value Reference Range Interpretation Comments BUN/CREAT (test code = BUN/CREAT) 14 1 6-25 [facility]JpvawoyYvcerdmyh1593-42-13 17:50:00 Test Item Value Reference Range Interpretation Comments ALBUMIN (test code = ALBUMIN) 3.7 3.5-5.0 [facility] HospitalPrssinlCklmrqdfl6325-77-98 17:50:00 Test Item Value Reference Range Interpretation Comments CALCIUM (test code = CALCIUM) 9.0 8.5-10.5 [facility] HospitalLphunpmDljpjdiib1272-82-01 17:50:00 Test Item Value Reference Range Interpretation Comments SGPT (ALT) (test code 37 See_Comment [Auto mated message] The = SGPT (ALT)) system which g enerated this result transmit bushra reference range : <=65. The reference range was not used to interpr et this result as nina l/abnormal. [facility] HospitalXfsqygdOguigyxsu0337-33-87 17:50:00 Test Item Value Reference Range Interpretation Comments SGOT (AST) (test code 13 See_Comment [Auto mated message] The = SGOT (AST)) system which g enerated this result transmit bushra reference range : <=37. The reference range was not used to interpr et this result as nina l/abnormal. [facility] HospitalQerhgbcXgqtvcxee5356-57-88 17:50:00 Test Item Value Reference Range Interpretation Comments ALK PHOS (test code = ALK PHOS) 102 39-136 [facility] HospitalLgdrgrpIxdogbxky0153-46-30 17:50:00 Test Item Value Reference Range Interpretation Comments TSH (test code = TSH) 2.050 0.360-3.740 [facility]EcvsmpbHvchslimgb0001-70-59 17:50:00 Test Item Value Reference Range Interpretation Comments HGB (test code = HGB) 15.6 14.0-18.0 [facility] HospitalLluyqdzGaxofrqgoj6644-78-98 17:50:00 Test Item Value Reference Range Interpretation Comments HCT (test code = HCT) 46.3 42.0-54.0 [facility] HospitalBaprqhbIiddvahanp0989-04-35 17:50:00 Test Item Value Reference Range Interpretation Comments PLATELETS (test code = PLATELETS) 296 K/CMM 133-450 [facility] CampusMicunzaPkvxptfjqq7215-92-38 17:50:00 Test Item Value Reference Range Interpretation Comments MICROALB URN (test code = MICROALB URN) 52.1 [facility] CampusClvwgauZnwkbkrag8153-36-15 17:50:00 Test Item Value Reference Range Interpretation Comments HGBA1C (test code = 8.5 See_Comment [Automa bushra message] The HGBA1C) system which ge nerated this result transmit bushra reference range : <=5.6. The reference range was not used to interpr et this result as nina l/abnormal. [facility] CenterTnlhjoyDmknkahek6436-21-21 17:50:00 Test Item Value Reference Range Interpretation Comments CHOLESTEROL (test code = 217 See_Comment [A utomated message] The CHOLESTEROL) system which ge nerated this result tra nsmitted reference range : <=199. The reference r margaux was not used to int erpret this result as normal/abnormal . [facility] CenterKdmkpxlRjfgxfjok6964-78-71 17:50:00 Test Item Value Reference Range Interpretation Comments HDL (test code = HDL) 40 [facility] CenterNfscvhpDebmovkoo5416-61-37 17:50:00 Test Item Value Reference Range Interpretation Comments LDL (test code = See Note mg/dL See_Comment [Automat ed message] LDL) The system whic h generated this result transmitted ref erence range: <=99. Th e reference range was not used to interpr et this result as normal/abnormal . [facility] CenterBqjilvqHqzmvwyqj3913-95-20 17:50:00 Test Item Value Reference Range Interpretation Comments SODIUM (test code = SODIUM) 138 MEQ/L 135-145 [facility] CenterYhcyxzjIaknflqki8456-64-62 17:50:00 Test Item Value Reference Range Interpretation Comments POTASSIUM (test code = POTASSIUM) 4.2 MEQ/L 3.5-5.1 [facility] CenterThhpgboIytxktnrc1818-06-59 17:50:00 Test Item Value Reference Range Interpretation Comments CREATININE (test code = CREATININE) 0.7 0.5-1.4 [facility] CenterNfjbugvRaasnkqrj8435-19-91 17:50:00 Test Item Value Reference Range Interpretation Comments BUN (test code = BUN) 10 7-22 [facility] CenterYfsqcjrKrxgxsdch1499-24-03 17:50:00 Test Item Value Reference Range Interpretation Comments BUN/CREAT (test code = BUN/CREAT) 14 1 6-25 [facility] CenterHndicigRaczuexkx2673-02-49 17:50:00 Test Item Value Reference Range Interpretation Comments ALBUMIN (test code = ALBUMIN) 3.7 3.5-5.0 [facility] CenterBlmjkhuDuslivibd2401-31-63 17:50:00 Test Item Value Reference Range Interpretation Comments CALCIUM (test code = CALCIUM) 9.0 8.5-10.5 [facility] CenterCarwbofYcmktfmec0913-08-56 17:50:00 Test Item Value Reference Range Interpretation Comments SGPT (ALT) (test code 37 See_Comment [Auto mated message] The = SGPT (ALT)) system which g enerated this result transmit bushra reference range : <=65. The reference range was not used to interpr et this result as nina l/abnormal. [facility] HospitalAwvmyoaWxjsbkmmd0018-38-29 17:50:00 Test Item Value Reference Range Interpretation Comments SGOT (AST) (test code 13 See_Comment [Auto mated message] The = SGOT (AST)) system which g enerated this result transmit bushra reference range : <=37. The reference range was not used to interpr et this result as nina l/abnormal. [facility] CampusChvjtqqGjracylhi0992-53-00 17:50:00 Test Item Value Reference Range Interpretation Comments ALK PHOS (test code = ALK PHOS) 102 39-136 [facility] HospitalRcexvzaLetuvhzpv3294-61-67 17:50:00 Test Item Value Reference Range Interpretation Comments TSH (test code = TSH) 2.050 0.360-3.740 [facility] HospitalQkwrtlnEukbfbqstu8307-68-80 17:50:00 Test Item Value Reference Range Interpretation Comments HGB (test code = HGB) 15.6 14.0-18.0 [facility] CenterDjluqpoCizoiirnho1288-55-44 17:50:00 Test Item Value Reference Range Interpretation Comments HCT (test code = HCT) 46.3 42.0-54.0 [facility] CenterMpgefbaYxfmeruokj4911-00-98 17:50:00 Test Item Value Reference Range Interpretation Comments PLATELETS (test code = PLATELETS) 296 K/CMM 133-450 [facility] CampusOvwedaxGyidojylvz2815-11-63 17:50:00 Test Item Value Reference Range Interpretation Comments MICROALB URN (test code = MICROALB URN) 52.1 [facility] HospitalEpnhdwuVnyenzyuv9554-04-30 13:13:00 Test Item Value Reference Range Interpretation Comments HEMOCCULT (test code = HEMOCCULT) Negative [facility] HospitalFtzxrwgCsvrqibmb5761-87-53 13:13:00 Test Item Value Reference Range Interpretation Comments HEMOCCULT (test code = HEMOCCULT) Negative [facility] CenterCdwioeiCgfbfbzenmty5236-41-91 13:13:00 Test Item Value Reference Range Interpretation Comments HEMOCCULT (test code = HEMOCCULT) Negative [facility] CenterVegfkbuSyzvmqtal8481-22-84 13:13:00 Test Item Value Reference Range Interpretation Comments HEMOCCULT (test code = HEMOCCULT) Negative [facility] CenterKkxhlleJqrsuaqdt6134-00-65 13:13:00 Test Item Value Reference Range Interpretation Comments HEMOCCULT (test code = HEMOCCULT) Negative [facility] CenterGhgwzlmOcwlrnlggwly1535-68-42 13:13:00 Test Item Value Reference Range Interpretation Comments HEMOCCULT (test code = HEMOCCULT) Negative [facility] CenterWjjrgvtLmkxgmgkz5897-08-36 13:32:00 Test Item Value Reference Range Interpretation Comments HEMOCCULT (test code = HEMOCCULT) Negative [facility] CenterUzrserqGkbdpdghq5940-73-31 13:32:00 Test Item Value Reference Range Interpretation Comments HEMOCCULT (test code = HEMOCCULT) Negative [facility] CenterGzaiqdkRhhygkrryhzm5529-52-24 13:32:00 Test Item Value Reference Range Interpretation Comments HEMOCCULT (test code = HEMOCCULT) Negative [facility] CenterZchroluLaopbedic8146-50-92 13:32:00 Test Item Value Reference Range Interpretation Comments HEMOCCULT (test code = HEMOCCULT) Negative [facility] CenterDusylcfHodxyykkg9489-65-73 13:32:00 Test Item Value Reference Range Interpretation Comments HEMOCCULT (test code = HEMOCCULT) Negative [facility] CenterCnmhurjIvmnnxjckkpv0072-00-58 13:32:00 Test Item Value Reference Range Interpretation Comments HEMOCCULT (test code = HEMOCCULT) Negative [facility] CenterYbfzczeTcxpvwfzn8598-61-33 13:10:00 Test Item Value Reference Range Interpretation Comments HEMOCCULT (test code = HEMOCCULT) Negative [facility] CenterWwdejfwChybbdpsn7856-43-33 13:10:00 Test Item Value Reference Range Interpretation Comments HEMOCCULT (test code = HEMOCCULT) Negative [facility] CenterGgngqjyEdbovfyijzoj9646-24-84 13:10:00 Test Item Value Reference Range Interpretation Comments HEMOCCULT (test code = HEMOCCULT) Negative [facility] CenterGkqalhbMwydwlcfa5116-81-03 13:10:00 Test Item Value Reference Range Interpretation Comments HEMOCCULT (test code = HEMOCCULT) Negative [facility] HospitalGkfjxkoAyvyhmtip3797-28-99 13:10:00 Test Item Value Reference Range Interpretation Comments HEMOCCULT (test code = HEMOCCULT) Negative [facility]RfbvdbzZvhgyrtnpvbd3292-19-20 13:10:00 Test Item Value Reference Range Interpretation Comments HEMOCCULT (test code = HEMOCCULT) Negative [facility] HospitalOcijjdnPvlwwhudk3810-20-03 20:44:00 Test Item Value Reference Range Interpretation Comments HGBA1C (test code = 10.6 See_Comment [Automa bushra message] The HGBA1C) system which ge nerated this result transmit bushra reference range : <=5.6. The reference range was not used to interpr et this result as nina l/abnormal. [facility] HospitalFmglhllAfliewwijt5373-97-01 20:44:00 Test Item Value Reference Range Interpretation Comments HGB (test code = HGB) 15.2 14.0-18.0 [facility] HospitalMcwrfygIpjjzushdn9916-04-29 20:44:00 Test Item Value Reference Range Interpretation Comments HCT (test code = HCT) 45.8 42.0-54.0 [facility] [facility]slfbpxQzttongtxq4982-40-96 20:44:00 Test Item Value Reference Range Interpretation Comments PLATELETS (test code = PLATELETS) 289 K/CMM 133-450 [facility] HospitalOgbkzppGqlobiyoj4350-48-76 20:44:00 Test Item Value Reference Range Interpretation Comments HGBA1C (test code = 10.6 See_Comment [Automa bushra message] The HGBA1C) system which ge nerated this result transmit bushra reference range : <=5.6. The reference range was not used to interpr et this result as nina l/abnormal. [facility] HospitalYdpdetiMxkpfzvla3319-97-13 20:44:00 Test Item Value Reference Range Interpretation Comments HGBA1C (test code = 10.6 See_Comment [Automa bushra message] The HGBA1C) system which ge nerated this result transmit bushra reference range : <=5.6. The reference range was not used to interpr et this result as nina l/abnormal. [facility] HospitalFpftvtuRiasllqqrp1291-57-92 20:44:00 Test Item Value Reference Range Interpretation Comments HGB (test code = HGB) 15.2 14.0-18.0 [facility] CampusXegjfegZjkiezfead8304-03-24 20:44:00 Test Item Value Reference Range Interpretation Comments HCT (test code = HCT) 45.8 42.0-54.0 [facility]MmxqrllVnwzofltrl7201-50-06 20:44:00 Test Item Value Reference Range Interpretation Comments PLATELETS (test code = PLATELETS) 289 K/CMM 133-450 [facility] CampusDtrsvdpRudgvydzx8721-57-57 20:44:00 Test Item Value Reference Range Interpretation Comments HGBA1C (test code = 10.6 See_Comment [Automa bushra message] The HGBA1C) system which ge nerated this result transmit bushra reference range : <=5.6. The reference range was not used to interpr et this result as nina l/abnormal. [facility] CampusCzafjffHgubnflkoz3427-75-31 21:32:00 Test Item Value Reference Range Interpretation Comments MICROALB URN (test code = MICROALB URN) 89.6 [facility] HospitalLhmsnbkTvfjkkkkw3227-58-11 21:32:00 Test Item Value Reference Range Interpretation Comments HGBA1C (test code = 11.0 See_Comment [Automa bushra message] The HGBA1C) system which ge nerated this result transmit bushra reference range : <=5.6. The reference range was not used to interpr et this result as nina l/abnormal. [facility] HospitalKuioafrYyanpytic8018-18-08 21:32:00 Test Item Value Reference Range Interpretation Comments CHOLESTEROL (test code = 214 See_Comment [A utomated message] The CHOLESTEROL) system which ge nerated this result tra nsmitted reference range : <=199. The reference r margaux was not used to int erpret this result as normal/abnormal . [facility]SqvgfjfAcaabkrlh3720-06-37 21:32:00 Test Item Value Reference Range Interpretation Comments HDL (test code = HDL) 29 [facility] HospitalSvlsryuOzbzdcuzq8743-66-28 21:32:00 Test Item Value Reference Range Interpretation Comments LDL (test code = See Note mg/dL See_Comment [Automat ed message] LDL) The system whic h generated this result transmitted ref erence range: <=99. Th e reference range was not used to interpr et this result as normal/abnormal . [facility] CampusSpqbbnkEowgpvudr8287-03-38 21:32:00 Test Item Value Reference Range Interpretation Comments HGBA1C (test code = 11.0 See_Comment [Automa bushra message] The HGBA1C) system which ge nerated this result transmit bushra reference range : <=5.6. The reference range was not used to interpr et this result as nina l/abnormal. [facility] HospitalYkwfoyiXiqdzqhnr9308-54-86 21:32:00 Test Item Value Reference Range Interpretation Comments CHOLESTEROL (test code = 214 See_Comment [A utomated message] The CHOLESTEROL) system which ge nerated this result tra nsmitted reference range : <=199. The reference r margaux was not used to int erpret this result as normal/abnormal . [facility] HospitalWudjqpyStfbtlvui1267-01-64 21:32:00 Test Item Value Reference Range Interpretation Comments HDL (test code = HDL) 29 [facility]QordsxlDoddtrhvgq1577-92-06 21:32:00 Test Item Value Reference Range Interpretation Comments MICROALB URN (test code = MICROALB URN) 89.6 [facility] IrvingNhhknypEirizcmkxc4965-30-91 21:32:00 Test Item Value Reference Range Interpretation Comments MICROALB URN (test code = MICROALB URN) 89.6 [facility] HospitalHirgfntVlwqerqyc0494-51-32 21:32:00 Test Item Value Reference Range Interpretation Comments HGBA1C (test code = 11.0 See_Comment [Automa bushra message] The HGBA1C) system which ge nerated this result transmit bushra reference range : <=5.6. The reference range was not used to interpr et this result as nina l/abnormal. [facility] HospitalPxpozbiPyfjkgxps9915-23-67 21:32:00 Test Item Value Reference Range Interpretation Comments CHOLESTEROL (test code = 214 See_Comment [A utomated message] The CHOLESTEROL) system which ge nerated this result tra nsmitted reference range : <=199. The reference r margaux was not used to int erpret this result as normal/abnormal . [facility] HospitalSkgsjiyWlmvyrgfc8952-68-96 21:32:00 Test Item Value Reference Range Interpretation Comments HDL (test code = HDL) 29 [facility] HospitalGkhjrybQsdutmrrm5316-48-83 21:32:00 Test Item Value Reference Range Interpretation Comments LDL (test code = See Note mg/dL See_Comment [Automat ed message] LDL) The system whic h generated this result transmitted ref erence range: <=99. Th e reference range was not used to interpr et this result as normal/abnormal . [facility] HospitalBuoqyeeYikpurkbf3415-05-08 21:32:00 Test Item Value Reference Range Interpretation Comments BUN (test code = BUN) 11 7-22 [facility] HospitalFdyfjhaDgneghane4022-97-73 21:32:00 Test Item Value Reference Range Interpretation Comments CREATININE (test code = CREATININE) 0.6 0.5-1.4 [facility] HospitalGiexqhqKsizrnjmq0181-57-63 21:32:00 Test Item Value Reference Range Interpretation Comments SODIUM (test code = SODIUM) 140 MEQ/L 135-145 [facility] HospitalLowroaxBmqnrfojh6094-63-11 21:32:00 Test Item Value Reference Range Interpretation Comments POTASSIUM (test code = POTASSIUM) 4.2 MEQ/L 3.5-5.1 [facility] HospitalOsgetczVwtyprjnz4968-56-39 21:32:00 Test Item Value Reference Range Interpretation Comments CALCIUM (test code = CALCIUM) 9.6 8.5-10.5 [facility] CampusSxmzcxlLfftfbxrbv6368-11-45 21:32:00 Test Item Value Reference Range Interpretation Comments MICROALB URN (test code = MICROALB URN) 89.6 [facility] HospitalSufihjaLeiegyaya7578-26-22 21:32:00 Test Item Value Reference Range Interpretation Comments HGBA1C (test code = 11.0 See_Comment [Automa bushra message] The HGBA1C) system which nerated this result transmit bushra reference range : <=5.6. The reference range was not used to interpr et this result as nina l/abnormal. [facility] HospitalEofviabWdjcqcfid2450-69-72 21:32:00 Test Item Value Reference Range Interpretation Comments CHOLESTEROL (test code = 214 See_Comment [A utomated message] The CHOLESTEROL) system which ge nerated this result tra nsmitted reference range : <=199. The reference r margaux was not used to int erpret this result as normal/abnormal . [facility] HospitalOxfdogaBzyfmpybo3118-86-91 21:32:00 Test Item Value Reference Range Interpretation Comments HDL (test code = HDL) 29 [facility] HospitalGoobwzeJuokrgmtq3793-57-74 21:32:00 Test Item Value Reference Range Interpretation Comments HGBA1C (test code = 11.0 See_Comment [Automa bushra message] The HGBA1C) system which ge nerated this result transmit bushra reference range : <=5.6. The reference range was not used to interpr et this result as nina l/abnormal. [facility] CenterFlchkyyEumslumsb6877-22-51 21:32:00 Test Item Value Reference Range Interpretation Comments CHOLESTEROL (test code = 214 See_Comment [A utomated message] The CHOLESTEROL) system which ge nerated this result tra nsmitted reference range : <=199. The reference r margaux was not used to int erpret this result as normal/abnormal . [facility] CenterRammozkLdgrxyzlx7108-86-90 21:32:00 Test Item Value Reference Range Interpretation Comments HDL (test code = HDL) 29 [facility] CampusFyhomqcDujeoreez5693-36-55 21:32:00 Test Item Value Reference Range Interpretation Comments LDL (test code = See Note mg/dL See_Comment [Automat ed message] LDL) The system [employer] h generated this result transmitted ref erence range: <=99. Th e reference range was not used to interpr et this result as normal/abnormal . [facility] CenterLwxmpmpYokfnuiych0485-21-46 21:32:00 Test Item Value Reference Range Interpretation Comments MICROALB URN (test code = MICROALB URN) 89.6 [facility] CampusVhuotfnEbyjokorew1960-58-31 21:32:00 Test Item Value Reference Range Interpretation Comments MICROALB URN (test code = MICROALB URN) 89.6 [facility] CampusPppvkwbTtwrbvvlu4641-39-46 21:32:00 Test Item Value Reference Range Interpretation Comments HGBA1C (test code = 11.0 See_Comment [Automa bushra message] The HGBA1C) system which ge nerated this result transmit bushra reference range : <=5.6. The reference range was not used to interpr et this result as nina l/abnormal. [facility] CenterWltqecwTvmprynqm1166-16-62 21:32:00 Test Item Value Reference Range Interpretation Comments CHOLESTEROL (test code = 214 See_Comment [A utomated message] The CHOLESTEROL) system which ge nerated this result tra nsmitted reference range : <=199. The reference r margaux was not used to int erpret this result as normal/abnormal . [facility] SuximabWyrndhhmf6092-90-22 21:32:00 Test Item Value Reference Range Interpretation Comments HDL (test code = HDL) 29 [facility] HospitalQhdqpdtRwfzhwadn8175-19-82 21:32:00 Test Item Value Reference Range Interpretation Comments LDL (test code = See Note mg/dL See_Comment [Automat ed message] LDL) The system [employer] generated this result transmitted ref erence range: <=99. Th e reference range was not used to interpr et this result as normal/abnormal . [facility] HospitalHsjeongZcsljzdka2908-54-84 21:32:00 Test Item Value Reference Range Interpretation Comments BUN (test code = BUN) 11 7- [facility] HospitalVgwjzmgTbubqblax3542-65-53 21:32:00 Test Item Value Reference Range Interpretation Comments CREATININE (test code = CREATININE) 0.6 0.5-1.4 [facility] HospitalFckcydkCmpyjyzul0574-49-49 21:32:00 Test Item Value Reference Range Interpretation Comments SODIUM (test code = SODIUM) 140 MEQ/L 135-145 [facility] HospitalYfpwhhySpgihwrdo5547-04-97 21:32:00 Test Item Value Reference Range Interpretation Comments POTASSIUM (test code = POTASSIUM) 4.2 MEQ/L 3.5-5.1 [facility] HospitalEzqhutwEjcgxbltn3980-22-45 21:32:00 Test Item Value Reference Range Interpretation Comments CALCIUM (test code = CALCIUM) 9.6 8.5-10.5 [facility] HospitalKkumkxrXsipjmodi2393-25-85 17:30:00 Test Item Value Reference Range Interpretation Comments HGBA1C (test code = HGBA1C) 8.1 [facility] HospitalCasdcorLniutcaxo3855-82-98 17:30:00 Test Item Value Reference Range Interpretation Comments CHOLESTEROL (test code = CHOLESTEROL) 191 120-200 [facility] HospitalBlgihfzWwixqskwc8342-68-77 17:30:00 Test Item Value Reference Range Interpretation Comments HDL (test code = HDL) 35 [facility] HospitalJlxqfkiSxbuhifpg3829-42-39 17:30:00 Test Item Value Reference Range Interpretation Comments LDL (test code = LDL) 97 See_Comment [Auto mated message] The system which ge nerated this result transmit bushra reference range : <=129. The reference range was not used to interpr et this result as nina l/abnormal. [facility] CampusJfofljtArtrcwgcq9812-32-44 17:30:00 Test Item Value Reference Range Interpretation Comments BUN (test code = BUN) 8 7-22 [facility] MjgqbleEfdvvthxw7784-57-00 17:30:00 Test Item Value Reference Range Interpretation Comments CREATININE (test code = CREATININE) 0.9 0.5-1.4 [facility] CenterMpsftqqRkiyejgwx8002-97-69 17:30:00 Test Item Value Reference Range Interpretation Comments SODIUM (test code = SODIUM) 140 MEQ/L 135-145 [facility] TemrrleRkddsbqzr3794-76-18 17:30:00 Test Item Value Reference Range Interpretation Comments POTASSIUM (test code = POTASSIUM) 4.4 MEQ/L 3.5-5.1 [facility] VvitjfkWcuvfxeaz2383-19-44 17:30:00 Test Item Value Reference Range Interpretation Comments CALCIUM (test code = CALCIUM) 9.1 8.5-10.5 [facility] CenterTkqbdvcFftwqtijtc4952-99-49 17:30:00 Test Item Value Reference Range Interpretation Comments MICROALB URN (test code = MICROALB URN) 47.8 [facility] CenterLjztsstYunikonwy0563-84-73 17:30:00 Test Item Value Reference Range Interpretation Comments HGBA1C (test code = HGBA1C) 8.1 [facility] NivbybyUdbwiiaak4002-62-06 17:30:00 Test Item Value Reference Range Interpretation Comments HGBA1C (test code = HGBA1C) 8.1 [facility] CenterPsmqyggNhojvfadj7188-78-99 17:30:00 Test Item Value Reference Range Interpretation Comments CHOLESTEROL (test code = CHOLESTEROL) 191 120-200 [facility] CenterQzfohqvEbellrkbj0021-71-87 17:30:00 Test Item Value Reference Range Interpretation Comments HDL (test code = HDL) 35 [facility] CenterCkyevigJdnhdpehp0351-54-30 17:30:00 Test Item Value Reference Range Interpretation Comments HGBA1C (test code = HGBA1C) 8.1 [facility] YjigxqcOgavonipq0669-47-30 17:30:00 Test Item Value Reference Range Interpretation Comments CHOLESTEROL (test code = CHOLESTEROL) 191 120-200 [facility] CenterXugdwmuEzgcepsql6236-95-16 17:30:00 Test Item Value Reference Range Interpretation Comments HDL (test code = HDL) 35 [facility] CenterCmbpmkbCaatxtokb3211-93-88 17:30:00 Test Item Value Reference Range Interpretation Comments LDL (test code = LDL) 97 See_Comment [Auto mated message] The system which ge nerated this result transmit bushra reference range : <=129. The reference range was not used to interpr et this result as nina l/abnormal. [facility] CampusVkyrxskVdkkedirhm9707-52-18 17:30:00 Test Item Value Reference Range Interpretation Comments MICROALB URN (test code = MICROALB URN) 47.8 [facility] ResourcesWnxxsdxRbytsctymq5054-48-87 17:30:00 Test Item Value Reference Range Interpretation Comments MICROALB URN (test code = MICROALB URN) 47.8 [facility] HospitalQgsapgzUcjxylfji6864-99-96 17:30:00 Test Item Value Reference Range Interpretation Comments HGBA1C (test code = HGBA1C) 8.1 [facility] HospitalNyugyrbJejlejrmc5823-08-88 17:30:00 Test Item Value Reference Range Interpretation Comments CHOLESTEROL (test code = CHOLESTEROL) 191 120-200 [facility] HospitalHdyqmdpIwzhvyqai8605-45-53 17:30:00 Test Item Value Reference Range Interpretation Comments HDL (test code = HDL) 35 [facility] HospitalByysdkkBqlouimat8818-25-88 17:30:00 Test Item Value Reference Range Interpretation Comments LDL (test code = LDL) 97 See_Comment [Auto mated message] The system which ge nerated this result transmit bushra reference range : <=129. The reference range was not used to interpr et this result as nina l/abnormal. [facility] HospitalUwvsnwmBjfbydbqr9499-20-40 17:30:00 Test Item Value Reference Range Interpretation Comments BUN (test code = BUN) 8 7-22 [facility] HospitalJxowmjfJnspmfkfk6512-94-99 17:30:00 Test Item Value Reference Range Interpretation Comments CREATININE (test code = CREATININE) 0.9 0.5-1.4 [facility] HospitalZbcygyjMloaknddo1073-29-93 17:30:00 Test Item Value Reference Range Interpretation Comments SODIUM (test code = SODIUM) 140 MEQ/L 135-145 [facility] HospitalQbuagttNmjivouzl9353-05-44 17:30:00 Test Item Value Reference Range Interpretation Comments POTASSIUM (test code = POTASSIUM) 4.4 MEQ/L 3.5-5.1 [facility] HospitalHcsagxjSqpfbruut4357-66-00 17:30:00 Test Item Value Reference Range Interpretation Comments CALCIUM (test code = CALCIUM) 9.1 8.5-10.5 [facility]VipqbjwWoyuljjezo3878-01-63 17:30:00 Test Item Value Reference Range Interpretation Comments MICROALB URN (test code = MICROALB URN) 47.8 [facility] CenterUakkglkBscdtrftu7005-65-03 17:30:00 Test Item Value Reference Range Interpretation Comments HGBA1C (test code = HGBA1C) 8.1 [facility] CenterJksxogdJtvedijck7791-91-19 17:30:00 Test Item Value Reference Range Interpretation Comments HGBA1C (test code = HGBA1C) 8.1 [facility] CenterFqgmtnjRzyanouss6760-35-25 17:30:00 Test Item Value Reference Range Interpretation Comments CHOLESTEROL (test code = CHOLESTEROL) 191 120-200 [facility] CenterBlofmrcBacykrhbn1388-22-20 17:30:00 Test Item Value Reference Range Interpretation Comments HDL (test code = HDL) 35 [facility] CenterAabcxkpCspihwlxi0409-59-13 17:30:00 Test Item Value Reference Range Interpretation Comments HGBA1C (test code = HGBA1C) 8.1 [facility] CenterYapvxpwWmounhxos1417-91-80 17:30:00 Test Item Value Reference Range Interpretation Comments CHOLESTEROL (test code = CHOLESTEROL) 191 120-200 [facility] CenterVmgoteyHiktxfefj0186-62-69 17:30:00 Test Item Value Reference Range Interpretation Comments HDL (test code = HDL) 35 [facility] CenterGaxiqunGpcvfbtdf7717-33-59 17:30:00 Test Item Value Reference Range Interpretation Comments LDL (test code = LDL) 97 See_Comment [Auto mated message] The system which ge nerated this result transmit bushra reference range : <=129. The reference range was not used to interpr et this result as nina l/abnormal. [facility] CenterVwwjdtqArpkgyuikt4713-24-97 17:30:00 Test Item Value Reference Range Interpretation Comments MICROALB URN (test code = MICROALB URN) 47.8 [facility] CenterVsyelzwEgeslxepbc2228-75-06 17:30:00 Test Item Value Reference Range Interpretation Comments MICROALB URN (test code = MICROALB URN) 47.8 [facility] CenterRxydqyfYyaikxgst5282-51-40 15:45:00 Test Item Value Reference Range Interpretation Comments HGBA1C (test code = HGBA1C) 8.2 [facility] CenterUdymszoYcvorqwks5508-89-85 15:45:00 Test Item Value Reference Range Interpretation Comments HGBA1C (test code = HGBA1C) 8.2 [facility] CenterBjuniggHzowhkywq5375-76-68 15:45:00 Test Item Value Reference Range Interpretation Comments HGBA1C (test code = HGBA1C) 8.2 [facility] XvotksjAdddvrtxq8698-44-79 15:45:00 Test Item Value Reference Range Interpretation Comments HGBA1C (test code = HGBA1C) 8.2 [facility] WmdkryhZjkgbjrql3797-95-84 15:45:00 Test Item Value Reference Range Interpretation Comments HGBA1C (test code = HGBA1C) 8.2 [facility] XleybjiMychpoxxf0529-00-37 15:45:00 Test Item Value Reference Range Interpretation Comments HGBA1C (test code = HGBA1C) 8.2 [facility] MbddxzmVejibhrir4597-89-09 15:45:00 Test Item Value Reference Range Interpretation Comments HGBA1C (test code = HGBA1C) 8.2 [facility] IvtbruzXlwvaqvse1744-31-97 15:45:00 Test Item Value Reference Range Interpretation Comments HGBA1C (test code = HGBA1C) 8.2 [facility] QrsyfubDneqnxdye3535-27-47 20:00:00 Test Item Value Reference Range Interpretation Comments HGBA1C (test code = HGBA1C) 11.5 [facility] UhgvcosMsuyenjvu7423-60-56 20:00:00 Test Item Value Reference Range Interpretation Comments HGBA1C (test code = HGBA1C) 11.5 [facility] EkpprzxBcwqxhdnt2193-28-49 20:00:00 Test Item Value Reference Range Interpretation Comments HGBA1C (test code = HGBA1C) 11.5 [facility] CvdcbqnHkdvqblsa5494-27-40 20:00:00 Test Item Value Reference Range Interpretation Comments HGBA1C (test code = HGBA1C) 11.5 [facility] QdkfwfxNxxgyjpsf9714-20-94 20:00:00 Test Item Value Reference Range Interpretation Comments HGBA1C (test code = HGBA1C) 11.5 [facility] DbdlardBardtuskn0048-05-28 20:00:00 Test Item Value Reference Range Interpretation Comments HGBA1C (test code = HGBA1C) 11.5 [facility] IpzwhhjXslwpqczb8967-29-98 20:00:00 Test Item Value Reference Range Interpretation Comments HGBA1C (test code = HGBA1C) 11.5 [facility] TihqobuNogaeomsu7678-52-17 20:00:00 Test Item Value Reference Range Interpretation Comments HGBA1C (test code = HGBA1C) 11.5 [facility] HospitalSjpplxkVptdyuvce8674-52-79 20:00:00 Test Item Value Reference Range Interpretation Comments HGBA1C (test code = HGBA1C) 11.5 [facility]MgfodqgZinkqobvi4866-22-06 20:00:00 Test Item Value Reference Range Interpretation Comments HGBA1C (test code = HGBA1C) 11.5 [facility] HospitalEbmmypgBrqptlosz1592-87-28 15:20:00 Test Item Value Reference Range Interpretation Comments TSH (test code = TSH) 1.010 0.360-3.740 [facility] HospitalHxgfihcPqrmasehn6531-53-32 15:20:00 Test Item Value Reference Range Interpretation Comments CHOLESTEROL (test code = CHOLESTEROL) 197 120-200 [facility] HospitalJbpnzhgYxjfprnam4092-26-03 15:20:00 Test Item Value Reference Range Interpretation Comments HDL (test code = HDL) 28 [facility] HospitalAvqzopmEaclmptin3521-37-45 15:20:00 Test Item Value Reference Range Interpretation Comments LDL (test code = LDL) 91 See_Comment [Auto mated message] The system which ge nerated this result transmit bushra reference range : <=129. The reference range was not used to interpr et this result as nina l/abnormal. [facility] HospitalRuyljawMltkdhweb4409-87-35 15:20:00 Test Item Value Reference Range Interpretation Comments SODIUM (test code = SODIUM) 138 MEQ/L 135-145 [facility] HospitalXkvltauUqrqaystu4877-21-51 15:20:00 Test Item Value Reference Range Interpretation Comments POTASSIUM (test code = POTASSIUM) 4.3 MEQ/L 3.5-5.1 [facility] HospitalNsnqexfYiyqackua2447-91-14 15:20:00 Test Item Value Reference Range Interpretation Comments BUN (test code = BUN) 7 7-22 [facility] HospitalUjwacwdIuofukzco5064-47-07 15:20:00 Test Item Value Reference Range Interpretation Comments CREATININE (test code = CREATININE) 0.8 0.5-1.4 [facility] HospitalInlwaacGihpitowh3530-77-24 15:20:00 Test Item Value Reference Range Interpretation Comments BUN/CREAT (test code = BUN/CREAT) 9 1 6-25 [facility] HospitalJxxbgueJmxfwkcrw9327-42-91 15:20:00 Test Item Value Reference Range Interpretation Comments ALBUMIN (test code = ALBUMIN) 3.6 3.5-5.0 [facility] [facility] HospitalVvftileQeonvfjct7822-86-41 15:20:00 Test Item Value Reference Range Interpretation Comments CALCIUM (test code = CALCIUM) 8.7 8.5-10.5 [facility] HospitalFenlnjfGmkvtnmjx9104-86-77 15:20:00 Test Item Value Reference Range Interpretation Comments SGOT (AST) (test code 15 See_Comment [Auto mated message] The = SGOT (AST)) system which g enerated this result transmit bushra reference range : <=37. The reference range was not used to interpr et this result as nina l/abnormal. [facility] HospitalUsypszbEfywgkwvd0694-34-43 15:20:00 Test Item Value Reference Range Interpretation Comments SGPT (ALT) (test code 46 See_Comment [Auto mated message] The = SGPT (ALT)) system which g enerated this result transmit bushra reference range : <=65. The reference range was not used to interpr et this result as nina l/abnormal. [facility] HospitalImkiwveJmuynfruy0206-70-47 15:20:00 Test Item Value Reference Range Interpretation Comments ALK PHOS (test code = ALK PHOS) 101 39-136 [facility] HospitalSaxervhRiccmuaxp8585-20-96 15:20:00 Test Item Value Reference Range Interpretation Comments TSH (test code = TSH) 1.010 0.360-3.740 [facility] HospitalNaqoapxFwqezzvvt3418-35-28 15:20:00 Test Item Value Reference Range Interpretation Comments CHOLESTEROL (test code = CHOLESTEROL) 197 120-200 [facility] HospitalDlrpthzGcrwzugxc1450-59-59 15:20:00 Test Item Value Reference Range Interpretation Comments HDL (test code = HDL) 28 [facility] HospitalFulujmyBrlbpwnok7094-13-80 15:20:00 Test Item Value Reference Range Interpretation Comments LDL (test code = LDL) 91 See_Comment [Auto mated message] The system which ge nerated this result transmit bushra reference range : <=129. The reference range was not used to interpr et this result as nina l/abnormal. [facility] HospitalTycxiltSvbwrtzyh9030-92-84 15:20:00 Test Item Value Reference Range Interpretation Comments SODIUM (test code = SODIUM) 138 MEQ/L 135-145 [facility] HospitalAhghgvqLtbqybzqi4983-69-59 15:20:00 Test Item Value Reference Range Interpretation Comments POTASSIUM (test code = POTASSIUM) 4.3 MEQ/L 3.5-5.1 [facility] HospitalNacgsjkLcacszvbn2227-07-31 15:20:00 Test Item Value Reference Range Interpretation Comments BUN (test code = BUN) 7 7-22 [facility] HospitalQtrdfveZfuspcobe7123-49-79 15:20:00 Test Item Value Reference Range Interpretation Comments CREATININE (test code = CREATININE) 0.8 0.5-1.4 [facility] HospitalPbfnmtaEzbhhxotr3570-46-00 15:20:00 Test Item Value Reference Range Interpretation Comments BUN/CREAT (test code = BUN/CREAT) 9 1 6-25 [facility] HospitalYcjoflhCounumipi5465-03-70 15:20:00 Test Item Value Reference Range Interpretation Comments ALBUMIN (test code = ALBUMIN) 3.6 3.5-5.0 [facility] HospitalLtxpmbwNgrvjdxoz1060-15-29 15:20:00 Test Item Value Reference Range Interpretation Comments CALCIUM (test code = CALCIUM) 8.7 8.5-10.5 [facility] HospitalVlcmlqfOfeoihksd1854-89-57 15:20:00 Test Item Value Reference Range Interpretation Comments SGOT (AST) (test code 15 See_Comment [Auto mated message] The = SGOT (AST)) system which g enerated this result transmit bushra reference range : <=37. The reference range was not used to interpr et this result as nina l/abnormal. [facility] HospitalSkgyujkZnjrguwvy5113-84-09 15:20:00 Test Item Value Reference Range Interpretation Comments SGPT (ALT) (test code 46 See_Comment [Auto mated message] The = SGPT (ALT)) system which g enerated this result transmit bushra reference range : <=65. The reference range was not used to interpr et this result as nina l/abnormal. [facility] HospitalDrxtqpfXdnkyvhvp4598-89-16 15:20:00 Test Item Value Reference Range Interpretation Comments ALK PHOS (test code = ALK PHOS) 101 39-136 [facility] HospitalXtznkzsZahtekbcav4951-35-93 15:20:00 Test Item Value Reference Range Interpretation Comments HGB (test code = HGB) 14.6 14.0-18.0 [facility] HospitalIuomsacSaawqqdwhm7678-59-33 15:20:00 Test Item Value Reference Range Interpretation Comments HCT (test code = HCT) 44.2 42.0-54.0 [facility] HospitalGszxpdsDngfmtmvdy6730-17-34 15:20:00 Test Item Value Reference Range Interpretation Comments PLATELETS (test code = PLATELETS) 266 K/CMM 133-450 [facility] HospitalJyvnxypAuzcphgiux3106-44-83 15:20:00 Test Item Value Reference Range Interpretation Comments HGB (test code = HGB) 14.6 14.0-18.0 [facility] HospitalCnozlloKfmoipnmmd3615-59-42 15:20:00 Test Item Value Reference Range Interpretation Comments HCT (test code = HCT) 44.2 42.0-54.0 [facility] HospitalYdlhztcOhnwkfiuph9182-93-23 15:20:00 Test Item Value Reference Range Interpretation Comments PLATELETS (test code = PLATELETS) 266 K/CMM 133-450 [facility] HospitalCdyufoqOvxwahfgw9433-49-24 15:20:00 Test Item Value Reference Range Interpretation Comments TSH (test code = TSH) 1.010 0.360-3.740 [facility] HospitalFvzurarJywrjnbip8128-81-96 15:20:00 Test Item Value Reference Range Interpretation Comments TSH (test code = TSH) 1.010 0.360-3.740 [facility] HospitalGxovtziEhqssucog9079-11-33 15:20:00 Test Item Value Reference Range Interpretation Comments CHOLESTEROL (test code = CHOLESTEROL) 197 120-200 [facility] HospitalAtzfkuxOjghylvpg5162-56-23 15:20:00 Test Item Value Reference Range Interpretation Comments HDL (test code = HDL) 28 [facility] HospitalIdgqfwgHodnvvkla7860-74-61 15:20:00 Test Item Value Reference Range Interpretation Comments TSH (test code = TSH) 1.010 0.360-3.740 [facility] HospitalXhdwhljAjwwufmgp9026-28-32 15:20:00 Test Item Value Reference Range Interpretation Comments CHOLESTEROL (test code = CHOLESTEROL) 197 120-200 [facility] HospitalZwnsqqlYeshclihe5113-27-08 15:20:00 Test Item Value Reference Range Interpretation Comments HDL (test code = HDL) 28 [facility] HospitalGkbcrwvMoyxnraog5374-55-66 15:20:00 Test Item Value Reference Range Interpretation Comments LDL (test code = LDL) 91 See_Comment [Auto mated message] The system which ge nerated this result transmit bushra reference range : <=129. The reference range was not used to interpr et this result as nina l/abnormal. [facility] HospitalUafrpkrUafgiknxr7240-08-23 15:20:00 Test Item Value Reference Range Interpretation Comments TSH (test code = TSH) 1.010 0.360-3.740 [facility] HospitalGpkmyqlOnkvnkvej4847-26-00 15:20:00 Test Item Value Reference Range Interpretation Comments TSH (test code = TSH) 1.010 0.360-3.740 [facility] HospitalCmegwxsXhjkzaeqs5729-17-95 15:20:00 Test Item Value Reference Range Interpretation Comments CHOLESTEROL (test code = CHOLESTEROL) 197 120-200 [facility] HospitalTupbirzPbarhggce5423-44-58 15:20:00 Test Item Value Reference Range Interpretation Comments HDL (test code = HDL) 28 [facility] HospitalZwfacjhIynvexidu3853-21-92 15:20:00 Test Item Value Reference Range Interpretation Comments LDL (test code = LDL) 91 See_Comment [Auto mated message] The system which ge nerated this result transmit bushra reference range : <=129. The reference range was not used to interpr et this result as nina l/abnormal. [facility] HospitalYrvwytnSfictqjfm2310-28-32 15:20:00 Test Item Value Reference Range Interpretation Comments SODIUM (test code = SODIUM) 138 MEQ/L 135-145 [facility] HospitalEgnzrpgGtadlrdhy9068-64-03 15:20:00 Test Item Value Reference Range Interpretation Comments POTASSIUM (test code = POTASSIUM) 4.3 MEQ/L 3.5-5.1 [facility] HospitalKywueqoVlefvwnyi9637-99-63 15:20:00 Test Item Value Reference Range Interpretation Comments BUN (test code = BUN) 7 7-22 [facility] HospitalKkdsmglZfbrawrfy6374-81-42 15:20:00 Test Item Value Reference Range Interpretation Comments CREATININE (test code = CREATININE) 0.8 0.5-1.4 [facility] HospitalSutqfmmYpctyblei3691-20-05 15:20:00 Test Item Value Reference Range Interpretation Comments BUN/CREAT (test code = BUN/CREAT) 9 1 6-25 [facility] HospitalUfsvkiwBsxmqfmnb6107-03-37 15:20:00 Test Item Value Reference Range Interpretation Comments ALBUMIN (test code = ALBUMIN) 3.6 3.5-5.0 [facility] HospitalZlowobaTvkrqijaz7719-28-30 15:20:00 Test Item Value Reference Range Interpretation Comments CALCIUM (test code = CALCIUM) 8.7 8.5-10.5 [facility] HospitalPbuinidXnxvljgzd1150-76-21 15:20:00 Test Item Value Reference Range Interpretation Comments SGOT (AST) (test code 15 See_Comment [Auto mated message] The = SGOT (AST)) system which g enerated this result transmit bushra reference range : <=37. The reference range was not used to interpr et this result as nina l/abnormal. [facility]RvegswiNlrqqxlzj6860-38-39 15:20:00 Test Item Value Reference Range Interpretation Comments SGPT (ALT) (test code 46 See_Comment [Auto mated message] The = SGPT (ALT)) system which g enerated this result transmit bushra reference range : <=65. The reference range was not used to interpr et this result as nina l/abnormal. [facility] CenterCrnixhxOeowcansd9530-54-63 15:20:00 Test Item Value Reference Range Interpretation Comments ALK PHOS (test code = ALK PHOS) 101 39-136 [facility] HospitalNhsacsfGnmlfafgv6859-42-67 15:20:00 Test Item Value Reference Range Interpretation Comments TSH (test code = TSH) 1.010 0.360-3.740 [facility] CenterGesapnxDcufpyhrl9409-67-45 15:20:00 Test Item Value Reference Range Interpretation Comments CHOLESTEROL (test code = CHOLESTEROL) 197 120-200 [facility] HospitalFjilxotRknjpmyqm5752-01-10 15:20:00 Test Item Value Reference Range Interpretation Comments HDL (test code = HDL) 28 [facility] HospitalEskrwtcNshuprpbl8912-79-94 15:20:00 Test Item Value Reference Range Interpretation Comments LDL (test code = LDL) 91 See_Comment [Auto mated message] The system which ge nerated this result transmit bushra reference range : <=129. The reference range was not used to interpr et this result as nina l/abnormal. [facility] CenterMcgthcgVwhqnookc0103-74-39 15:20:00 Test Item Value Reference Range Interpretation Comments SODIUM (test code = SODIUM) 138 MEQ/L 135-145 [facility] HospitalDrsmtclCmqgkxzhr1816-69-49 15:20:00 Test Item Value Reference Range Interpretation Comments POTASSIUM (test code = POTASSIUM) 4.3 MEQ/L 3.5-5.1 [facility] HospitalKeuymtsOrhfjhcje5884-01-17 15:20:00 Test Item Value Reference Range Interpretation Comments BUN (test code = BUN) 7 7-22 [facility] HospitalWzivqraSwfogvhgx9531-90-53 15:20:00 Test Item Value Reference Range Interpretation Comments CREATININE (test code = CREATININE) 0.8 0.5-1.4 [facility] HospitalGhmqcgrBkvggzmbn0377-43-12 15:20:00 Test Item Value Reference Range Interpretation Comments BUN/CREAT (test code = BUN/CREAT) 9 1 6-25 [facility] HospitalVzteacyIjznwlybi2365-82-34 15:20:00 Test Item Value Reference Range Interpretation Comments ALBUMIN (test code = ALBUMIN) 3.6 3.5-5.0 [facility] HospitalLnvdjpsGixrzjgvm6649-99-37 15:20:00 Test Item Value Reference Range Interpretation Comments CALCIUM (test code = CALCIUM) 8.7 8.5-10.5 [facility] HospitalMtizvmqMauptvcmn5174-36-01 15:20:00 Test Item Value Reference Range Interpretation Comments SGOT (AST) (test code 15 See_Comment [Auto mated message] The = SGOT (AST)) system which g enerated this result transmit bushra reference range : <=37. The reference range was not used to interpr et this result as nina l/abnormal. [facility] HospitalQasneeyLiebiwjne4736-57-43 15:20:00 Test Item Value Reference Range Interpretation Comments SGPT (ALT) (test code 46 See_Comment [Auto mated message] The = SGPT (ALT)) system which g enerated this result transmit bushra reference range : <=65. The reference range was not used to interpr et this result as nina l/abnormal. [facility] HospitalTnijylhBiksvphkx2693-21-59 15:20:00 Test Item Value Reference Range Interpretation Comments ALK PHOS (test code = ALK PHOS) 101 39-136 [facility] HospitalGxqqipfFvhlkstvja9771-00-45 15:20:00 Test Item Value Reference Range Interpretation Comments HGB (test code = HGB) 14.6 14.0-18.0 [facility] HospitalYuwgjhbLmjyqzjvgb8955-19-19 15:20:00 Test Item Value Reference Range Interpretation Comments HCT (test code = HCT) 44.2 42.0-54.0 [facility] HospitalKjvclieDdlyjnxlzk1560-25-44 15:20:00 Test Item Value Reference Range Interpretation Comments PLATELETS (test code = PLATELETS) 266 K/CMM 133-450 [facility] HospitalMfwsjekBebakjyzgb7742-81-44 15:20:00 Test Item Value Reference Range Interpretation Comments HGB (test code = HGB) 14.6 14.0-18.0 [facility] HospitalBomgciuZzmpugzgdx2888-68-94 15:20:00 Test Item Value Reference Range Interpretation Comments HCT (test code = HCT) 44.2 42.0-54.0 [facility] HospitalRpdufpiPbfrpunosl1688-37-31 15:20:00 Test Item Value Reference Range Interpretation Comments PLATELETS (test code = PLATELETS) 266 K/CMM 133-450 [facility] HospitalJiluomiAhoffuoad1735-99-15 15:20:00 Test Item Value Reference Range Interpretation Comments TSH (test code = TSH) 1.010 0.360-3.740 [facility] HospitalQxqnrppVhmucpdua1054-55-20 15:20:00 Test Item Value Reference Range Interpretation Comments TSH (test code = TSH) 1.010 0.360-3.740 [facility] HospitalOwruiuuOcsqbxloo3595-36-60 15:20:00 Test Item Value Reference Range Interpretation Comments TSH (test code = TSH) 1.010 0.360-3.740 [facility] HospitalMgtoylwRhfpsompk6904-01-68 15:20:00 Test Item Value Reference Range Interpretation Comments CHOLESTEROL (test code = CHOLESTEROL) 197 120-200 [facility] HospitalFuruloxTnjmeoodb2573-59-99 15:20:00 Test Item Value Reference Range Interpretation Comments HDL (test code = HDL) 28 [facility] HospitalWvqconvJaqbuohli1137-57-68 15:20:00 Test Item Value Reference Range Interpretation Comments TSH (test code = TSH) 1.010 0.360-3.740 [facility] HospitalAcztennCcmegddgp5032-96-85 15:20:00 Test Item Value Reference Range Interpretation Comments CHOLESTEROL (test code = CHOLESTEROL) 197 120-200 [facility] HospitalRznwtfbRwqfspwpt9417-17-37 15:20:00 Test Item Value Reference Range Interpretation Comments HDL (test code = HDL) 28 [facility] HospitalEckdksiGqqghfplj8649-23-29 15:20:00 Test Item Value Reference Range Interpretation Comments LDL (test code = LDL) 91 See_Comment [Auto mated message] The system which ge nerated this result transmit bushra reference range : <=129. The reference range was not used to interpr et this result as nina l/abnormal. [facility]
[2022-05-01 16:12] LABS: Absolute Lymphocytes (CBC) 1.1 K/uL (0.7-4.9); Hematocrit 45.6 % (39.6-49.0); Lymphocytes % 8.6 % (15.3-44.8); MCV 85.7 fL (80-100); MPV 8.4 fL (7.6-11.3); RBC Red Blood Cell Count 5.33 M/uL (4.33-5.43)
[2022-05-01] MEDS ORDERED: DIPHENHYDRAMINE 50 MG/ML VIAL ONE (16:16)
[2022-05-01] MEDS ORDERED: METOCLOPRAMIDE 10 MG/2mL INJ ONE (16:16)
[2022-05-01] MEDS ORDERED: NA CHLORIDE 0.9% 1,000 ML ONE (16:16)
[2022-05-01 16:21] LABS: Potassium 3.9 mmol/L (3.5-5.1)
[2022-05-01 16:59] LABS: SARS-COV-2 RT PCR NEGATIVE (NEGATIVE)
--- NOTE | 2022-05-01 17:21 | RAD REPORT ---
EXAM DESCRIPTION: CT - Head Brain Wo Cont - 05/01/2022 5:05 pm CLINICAL HISTORY: headache COMPARISON: Head angio dated 05/01/2022 TECHNIQUE: Axial 5 mm thick images of the head were obtained without IV contrast. All CT scans are performed using dose optimization technique as appropriate and may include automated exposure control or mA/KV adjustment according to patient size. FINDINGS: No intracranial hemorrhage, mass, edema or shift of mid-line structures. No acute infarcti on changes seen. No abnormal extra-axial fluid collections. Ventricles are normal. Mastoid air cells are clear. Mucosal thickening is present throughout the paranasal sinuses without a ir-fluid level seen. No acute bony findings. IMPRESSION: No acute intracranial finding identifiable. Mucosal thickening throughout the paranasal sinuses without air-fluid level identified.
--- NOTE | 2022-05-01 17:23 | RAD REPORT ---
EXAM DESCRIPTION: CT - Head angio - 05/01/2022 5:06 pm CLINICAL HISTORY: headache TECHNIQUE: During dynamic enhancement using nonionic IV contrast, axial 1 millimeter thick images of the head were obtained. Sagittal and axial reconstruction images were generated using MIP technique and reviewed. All CT scans are performed using dose optimization technique as appropriate and may include automated exposure control or mA/KV adjustment according to patient size. COMPARISON: CT head same date FINDINGS: No aneurysm or vascular malformation identified. Major venous sinuses are patent. No stenosis, named branch occlusion, vasculitis or other significant vascular finding identifiable. Paranasal sinus mucosal thickening is addressed in separate CT head report. IMPRESSION: Negative CT angio head examination.
--- NOTE | 2022-05-01 17:25 | RAD REPORT ---
EXAM DESCRIPTION: CT - Neck Angio - 05/01/2022 5:06 pm CLINICAL HISTORY: headache TECHNIQUE: During dynamic enhancement using nonionic IV contrast, axial 2 mm thick images of the nec k were obtained. Sagittal and axial reconstruction images were generated using MIP technique and revi ewed. All CT scans are performed using dose optimization technique as appropriate and may include automated exposure control or mA/KV adjustment according to patient size. COMPARISON: CT head same date and CT angio head same date FINDINGS: No aneurysm or vascular malformation identified. No carotid or vertebral dissection. No aortic arch or great vessel origin abnormality seen. Vertebral artery origins unremarkable as well . No stenosis, vasculitis or other significant carotid artery finding. No focal abnormality of either vertebral artery. Basilar artery is normal. IMPRESSION: Negative CT angio neck examination.
[2022-05-01] MEDS ORDERED: BUPIVACAINE 0.5% PF 10 ML VIAL ONE (17:35)
[2022-05-01] MEDS ORDERED: ACETAMINOPHEN 325 MG TABLET ONE (17:54)
[2022-05-01] MEDS ORDERED: OSELTAMIVIR 75 MG CAP PO ONE (18:42)
--- NOTE | 2022-05-01 19:23 | ER ---
Nurse's Notes [facility] Name: Tyshawn Ray Age: 36 yrs Sex: Male : 1985 Arrival Date: 05/01/2022 Time: 14:15 Bed 9 Private MD: Ramsey Brennan Diagnosis: Paronychia;Influenza Presentation: 05/01 15:17 Chief complaint: Patient states: 164/114 BP at home, states h/a x 3 days with nausea vg1 and dizziness. Denies CP. Coronavirus screen: Vaccine status: Patient reports being unvaccinated. Client denies travel out of the [place] in the last 14 days. Ebola Screen: Patient negative for fever greater than or equal to 101.5 degrees Fahrenheit, and additional compatible Ebola Virus Disease symptoms. Initial Sepsis Screen: Does the patient meet any 2 criteria? No. Patient's initial sepsis screen is negative. Does the patient have a suspected source of infection? No. Patient's initial sepsis screen is negative. Risk Assessment: Do you want to hurt yourself or someone else? Patient reports no desire to harm self or others. Onset of symptoms was April 28, 2022. 15:17 Method Of Arrival: Ambulatory vg1 15:17 Acuity: POONAM 3 vg1 Triage Assessment: 15:18 Headache History: The patient has had previous headaches and this one is similar to vg1 previous episodes. General: Appears in no apparent distress. uncomfortable, Behavior is calm, cooperative. Pain: Complains of pain in right frontal area Pain currently is 7 out of 10 on a pain scale. Pain began 2-3 days ago. Also complains of nausea. Neuro: Level of Consciousness is awake, alert, obeys commands, Oriented to person, place, time, situation, Reports dizziness, headache. Historical: - Allergies: 15:18 No Known Allergies; vg1 - Home Meds: 15:18 meloxicam oral [Active]; atorvastatin oral [Active]; losartan oral [Active]; Farxiga vg1 oral [Active]; - PMHx: 15:18 Diabetes mellitus; Hypertensive disorder; vg1 - Immunization history:: Client reports having NOT received the Covid vaccine. - Social history:: Smoking status: Patient denies any tobacco usage or history of. Screenin:14 Abuse screen: Denies threats or abuse. Denies injuries from another. Nutritional ld1 screening: No deficits noted. Tuberculosis screening: No symptoms or risk factors identified. Fall Risk None identified. Assessment: 17:00 Reassessment: Patient appears in no apparent distress at this time. Patient and/or ld1 family updated on plan of care and expected duration. Pain level reassessed. Patient is alert, oriented x 3, equal unlabored respirations, skin warm/dry/pink. 18:30 Reassessment: Patient appears in no apparent distress at this time. Patient is alert, ld1 oriented x 3, equal unlabored respirations, skin warm/dry/pink. Patient denies pain at this time. Vital Signs: 15:17 BP 152 / 102; Pulse 90; Resp 17; Temp 98.7; Pulse Ox 97% ; Weight 117.93 kg; Height 5 vg1 ft. 9 in. (175.26 cm); Pain 7/10; 17:00 BP 146 / 88; Pulse 85; Resp 18; Pulse Ox 100% on R/A; ld1 18:00 BP 142 / 89; Pulse 81; Resp 18; Pulse Ox 100% on R/A; ld1 19:14 BP 146 / 91; Pulse 85; Resp 18; Pulse Ox 100% on R/A; ld1 15:17 Body Mass Index 38.39 (117.93 kg, 175.26 cm) vg1 ED Course: 14:15 Patient arrived in ED. mr 14:15 Ramsey Brennan MD is Private Physician. mr 14:40 [facility] 14:40 Dom Salcido MD is Attending Physician. [facility] 15:18 Triage completed. vg1 15:18 Arm band placed on. vg1 16:06 Hyun Wadsworth, MICHAEL is Primary Nurse. iw 17:07 CT Head Brain wo Cont In Process Unspecified. EDMS 17:08 CT Head Angio In Process Unspecified. EDMS 17:08 CT Neck Angio In Process Unspecified. EDMS 19:14 Patient has correct armband on for positive identification. Placed in gown. Bed in low ld1 position. Call light in reach. Side rails up X2. Pulse ox on. NIBP on. Door closed. Noise minimized. 19:14 No provider procedures requiring assistance completed. ld1 19:27 IV discontinued, intact, bleeding controlled, No redness/swelling at site. ld1 Administered Medications: 16:28 Drug: NS 0.9% 1000 ml Route: IV; Rate: 1 bolus; Site: left antecubital; iw 17:45 Follow up: Response: No adverse reaction; IV Status: Completed infusion; IV Intake: ld1 1000ml 16:28 Drug: Reglan (metoCLOPramide) 20 mg Route: IVP; Site: left antecubital; iw 17:45 Follow up: Response: No adverse reaction ld1 16:28 Drug: diphenhydrAMINE 12.5 mg Route: IVP; Site: left antecubital; iw 17:45 Follow up: Response: No adverse reaction ld1 17:45 Drug: Marcaine (bupivacaine) (0.5 %) 10 ml {Note: Administered by ANKITA Jones.} ld1 Volume: 10 ml; Route: Infiltration; 17:55 Follow up: Response: No adverse reaction ld1 17:54 Drug: Acetaminophen 650 mg Route: PO; ld1 18:43 Drug: Tamiflu (oseltamivir) 75 mg Route: PO; ld1 Medication: 19:14 VIS not applicable for this client. ld1 Intake: 17:45 IV: 1000ml; Total: 1000ml. ld1 Outcome: 19:23 Discharge ordered by MD. william 19:27 Discharged to home ambulatory. ld1 19:27 Condition: stable 19:27 Discharge instructions given to patient, Instructed on discharge instructions, follow up and referral plans. medication usage, Demonstrated understanding of instructions, follow-up care, medications. 19:30 Patient left the ED. ld1 Signatures: Dispatcher [employer] EDMS Ole Jacobsen PA PA jmm Rivera, Mary mr Williams, Irene, RN Sabine Patrick, RN RN 1 Susannah Wise RN RN ld1
--- NOTE | 2022-05-01 19:24 | EDPHYS ---
Physician Documentation [facility] Name: Tyshawn Ray Age: 36 yrs Sex: Male : 1985 Arrival Date: 05/01/2022 Time: 14:15 Bed 9 Private MD: Ramsey Brennan ED Physician Dom Salcido HPI: 05/01 15:28 This 36 yrs old Black Male presents to ER via Ambulatory with complaints of High Blood [facility] Pressure, Headache. 15:28 Is a 36-year-old male with history diabetes mellitus and hypertension the presents [facility] emerged department with complaints of right-sided headache beginning approximately 3 days ago. Patient also complains of body aches. Patient is currently taking antibiotics for a paronychia. Denies chest pain or abdominal pain.. Historical: - Allergies: 15:18 No Known Allergies; vg1 - Home Meds: 15:18 meloxicam oral [Active]; atorvastatin oral [Active]; losartan oral [Active]; Farxiga vg1 oral [Active]; - PMHx: 15:18 Diabetes mellitus; Hypertensive disorder; vg1 - Immunization history:: Client reports having NOT received the Covid vaccine. - Social history:: Smoking status: Patient denies any tobacco usage or history of. ROS: 15:28 Cardiovascular: Negative for chest pain, palpitations, and edema, Respiratory: Negative jm for shortness of breath, cough, wheezing, and pleuritic chest pain. 15:28 Constitutional: Positive for body aches, chills. 15:28 All other systems are negative. Exam: 15:28 Constitutional: This is a well developed, well nourished patient who is awake, alert, jmm and in no acute distress. Head/Face: atraumatic. Eyes: EOMI, no conjunctival erythema appreciated ENT: Moist Mucus Membranes Neck: Trachea midline, Supple Chest/axilla: Normal chest wall appearance and motion. Cardiovascular: Regular rate and rhythm. No edema appreciated Respiratory: Normal respirations, no respiratory distress appreciated Abdomen/GI: Non distended Back: Normal ROM 15:28 MS/ Extremity: Moves all extremities, no obvious deformities appreciated, no edema noted to the lower extremities Neuro: Awake and alert Psych: Behavior is normal, Mood is normal, Patient is cooperative and pleasant 15:28 Musculoskeletal/extremity: Paronychia noted to the left third finger. Vital Signs: 15:17 BP 152 / 102; Pulse 90; Resp 17; Temp 98.7; Pulse Ox 97% ; Weight 117.93 kg; Height 5 vg1 ft. 9 in. (175.26 cm); Pain 7/10; 17:00 BP 146 / 88; Pulse 85; Resp 18; Pulse Ox 100% on R/A; ld1 18:00 BP 142 / 89; Pulse 81; Resp 18; Pulse Ox 100% on R/A; ld1 19:14 BP 146 / 91; Pulse 85; Resp 18; Pulse Ox 100% on R/A; ld1 15:17 Body Mass Index 38.39 (117.93 kg, 175.26 cm) vg1 Procedures: 19:21 I \T\ D: Incision and drainage was performed for an abscess of the dorsal aspect of jmm distal phalanx of left middle finger and left middle fingernail Prepped with Betadine, Anesthetized with 0.5% Marcaine digital block 3 mL. Incised with 18-gauge. Drained large amount purulent fluid. Dressing: sterile 4x4 gauze, the patient tolerated the procedure well. MDM: 15:28 Patient medically screened. [facility] 19:22 Data reviewed: vital signs, nurses notes. Counseling: I had a detailed discussion with [facility] the patient and/or guardian regarding: the historical points, exam findings, and any diagnostic results supporting the discharge/admit diagnosis, lab results, radiology results, the need for outpatient follow up, to return to the emergency department if symptoms worsen or persist or if there are any questions or concerns that arise at home. ED course: Patient is alert nontoxic in appearance in the ED. CTA was negative. Patient was positive for influenza. Will treat. Patient otherwise given strict return precautions. Patient understood agrees plan of care. 05/01 15:29 Order name: CBC with Diff; Complete Time: 16:20 [facility] 05/01 15:29 Order name: BMP; Complete Time: 16:23 [facility] 05/01 15:31 Order name: [place] Screen Profile; Complete Time: 17:04 [facility] 05/01 15:31 Order name: COVID-19/FLU A+B; Complete Time: 17:14 [facility] 05/01 15:31 Order name: Strep; Complete Time: 16:50 [facility] 05/01 15:31 Order name: Troponin High Sensitivity; Complete Time: 16:38 [facility] 05/01 15:29 Order name: CT Head Brain wo Cont; Complete Time: 17:26 [facility] 05/01 15:29 Order name: CT Head Angio; Complete Time: 17:26 [facility] 05/01 15:30 Order name: CT Neck Angio; Complete Time: 17:26 [facility] 05/01 16:51 Order name: Throat Culture [facility] 05/01 15:29 Order name: Saline Lock; Complete Time: 16:06 [facility] Administered Medications: 16:28 Drug: NS 0.9% 1000 ml Route: IV; Rate: 1 bolus; Site: left antecubital; iw 17:45 Follow up: Response: No adverse reaction; IV Status: Completed infusion; IV Intake: ld1 1000ml 16:28 Drug: Reglan (metoCLOPramide) 20 mg Route: IVP; Site: left antecubital; iw 17:45 Follow up: Response: No adverse reaction ld1 16:28 Drug: diphenhydrAMINE 12.5 mg Route: IVP; Site: left antecubital; iw 17:45 Follow up: Response: No adverse reaction ld1 17:45 Drug: Marcaine (bupivacaine) (0.5 %) 10 ml {Note: Administered by PA. Karen} ld1 Volume: 10 ml; Route: Infiltration; 17:55 Follow up: Response: No adverse reaction ld1 17:54 Drug: Acetaminophen 650 mg Route: PO; ld1 18:43 Drug: Tamiflu (oseltamivir) 75 mg Route: PO; ld1 Disposition: 05/02 07:04 Co-signature as Attending Physician, Dom Salcido MD. rn Disposition Summary: 05/01/22 19:23 Discharge Ordered Location: Home [facility] Condition: Stable [facility] Diagnosis - Paronychia m - Influenza [facility] Followup: [facility] - With: Private Physician - When: 2 - 3 days - Reason: Recheck today's complaints, Continuance of care, Re-evaluation by your physician Discharge Instructions: - Discharge Summary Sheet [facility] - Paronychia m - Influenza, Adult, [id number] [facility] Forms: - Medication Reconciliation Form [facility] - Thank You Letter [facility] - Antibiotic Education m - Prescription Opioid Use [facility] Prescriptions: - Tamiflu 75 mg Oral Capsule - take 1 tablet by ORAL route every 12 hours for 5 days; 10 tablet; Refills: 0, jmm Product Selection Permitted Signatures: Dispatcher [employer] Ole Mills PA PA jmm Williams, Irene RN Dom Estrada MD MD rn Garcia, Victoria, RN RN vg1 Susannah Wise RN RN ld1
[2022-05-02 00:19] VITALS: TEMP 98.7
[2022-05-02 00:21] VITALS: O2SAT 100
[2022-05-02 00:23] VITALS: BP 146/91
== END 2022-05-01 19:30 | disposition home or self-care (01) ==
LOC: ER 14:10
PROC: 0H9GXZZ Drainage of Left Hand Skin, External Approach (ICD-10-PCS; principal; 2022-05-01)
DX: J11.1 Influenza due to unidentified influenza virus with other respiratory manifestations (principal); L03.012 Cellulitis of left finger; E11.9 Type 2 diabetes mellitus without complications; I10 Essential (primary) hypertension; Z20.822 Contact with and (suspected) exposure to COVID-19
CPT/HCPCS: 87070; 85025; 80048; 36415; 86308; 87081; 84484; 0240U; 70450; 70496; 70498; 10060; Q9967; J2765; J1200; J7030

== ENCOUNTER 2023-05-04 12:07 | Emergency (ER) | payer BC ==
[2023-05-04] MEDS ORDERED: ACETAMINOPHEN 500 MG TAB ONE ×2 (12:55)
--- NOTE | 2023-05-04 13:32 | RAD REPORT ---
EXAM DESCRIPTION: CT - Head Brain Wo Cont - 05/04/2023 1:26 pm CLINICAL HISTORY: trauma Trauma, head injury COMPARISON: <Comparisons> TECHNIQUE: All CT scans are performed using dose optimization technique as appropriate and may inclu de automated exposure control or mA/KV adjustment according to patient size. FINDINGS: No intracranial hemorrhage, hydrocephalus or extra-axial fluid collection.No areas of brai n edema or evidence of midline shift. Extensive multifocal paranasal sinus polypoid mucosal thickening. The calvarium is intact. Moderate s oft tissue swelling anterior to the left zygoma. IMPRESSION: No acute intracranial abnormality.
--- NOTE | 2023-05-04 13:34 | RAD REPORT ---
EXAM DESCRIPTION: CT - CTFB CLINICAL HISTORY: Deformity;Facial pain Trauma, facial pain and swelling COMPARISON: <Comparisons> TECHNIQUE: Axial 2 mm thick images of the face were obtained with sagittal and coronal reconstructio n images. All CT scans are performed using dose optimization technique as appropriate and may include automated exposure control or mA/KV adjustment according to patient size. FINDINGS: No acute facial bone fracture is seen.The mandible is intact. The globes and orbital contents are grossly unremarkable.Moderate left-sided periorbital soft tissue swelling. Swelling is also present anterior to the zygoma.Moderate multifocal polypoid mucosal thicke mike of the paranasal sinuses. IMPRESSION: Negative for facial bone fracture.
--- NOTE | 2023-05-04 13:41 | ER ---
Nurse's Notes [facility] Name: Tyshawn Ray Age: 37 yrs Sex: Male : 1985 Arrival Date: 05/04/2023 Time: 12:07 Bed 12 Private MD: Diagnosis: facial contusions s/p trauma Presentation: 05/04 12:16 Chief complaint: EMS states: patient was hit in the left eye and upper jaw with a lever me1 that had some pressure behind it. No LOC. No n/v. No changes in visual acuity. Pain 7/10. Coronavirus screen: Vaccine status: Patient reports being unvaccinated. Ebola Screen: No symptoms or risks identified at this time. Initial Sepsis Screen: Does the patient meet any 2 criteria? No. Patient's initial sepsis screen is negative. Does the patient have a suspected source of infection? No. Patient's initial sepsis screen is negative. Risk Assessment: Do you want to hurt yourself or someone else? Patient reports no desire to harm self or others. Onset of symptoms was May 04, 2023. 12:16 Method Of Arrival: EMS: [facility] 12:16 Acuity: POONAM 2 me1 Triage Assessment: 12:19 General: Appears uncomfortable, well groomed, well developed, well nourished, Behavior me1 is calm, cooperative, appropriate for age, Reports getting hit on the left side of his face with a lever at work. Pain 7/10 to left eye and left upper jaw. Pain: Complains of pain in left eye and left corner of mouth Pain does not radiate. Pain currently is 7 out of 10 on a pain scale. Quality of pain is described as throbbing, Pain began suddenly, Is continuous. EENT: Pain to left upper jaw. Scant amt of bleeding noted to left corner of the mouth. . Neuro: Level of Consciousness is awake, alert, obeys commands, Oriented to person, place, time, situation, Appropriate for age. Cardiovascular: Capillary refill < 3 seconds Patient's skin is warm and dry. Respiratory: Airway is patent Respiratory effort is even, unlabored, Respiratory pattern is regular, symmetrical. Historical: - Allergies: 12:19 No Known Allergies; me1 - PMHx: 12:19 diabetes mellitus; Hypertensive disorder; me1 - PSHx: 12:19 None; me1 - Immunization history:: Adult Immunizations not up to date. - Social history:: Smoking status: Patient denies any tobacco usage or history of. Screenin:23 [facility] ED Fall Risk Assessment (Adult) History of falling in the last 3 months, me1 including since admission No falls in past 3 months (0 pts) Confusion or Disorientation No (0 pts) Intoxicated or Sedated No (0 pts) Impaired Gait No (0 pts) Mobility Assist Device Used No (0 pt) Altered Elimination No (0 pt) Score/Fall Risk Level 0 - 2 = Low Risk Maintained a safe environment, Provided non-skid footwear, Hourly rounding (assess needs \T\ fall precautionary measures) done. Abuse screen: Denies threats or abuse. Nutritional screening: No deficits noted. Tuberculosis screening: No symptoms or risk factors identified. Assessment: 12:23 General: See triage assessment. . me1 Vital Signs: 12:16 BP 167 / 102; Pulse 81; Resp 19; Temp 98.4(O); Pulse Ox 99% on R/A; Weight 120.2 kg; me1 Height 5 ft. 9 in. ; Pain 7/10; 13:52 BP 169 / 98; Pulse 97; Resp 17; Pulse Ox 99% on R/A; me1 12:16 Body Mass Index 39.13 (120.20 kg, 175.26 cm) me1 12:16 Pain Scale: Adult me1 [place] Coma Score: 18:11 Eye Response: spontaneous(4). Motor Response: obeys commands(6). Verbal Response: sb4 oriented(5). Total: 15. 18:11 Eye Response: spontaneous(4). Motor Response: obeys commands(6). Verbal Response: sb4 oriented(5). Total: 15. ED Course: 12:16 Patient arrived in ED. me1 12:16 Norma Aceves, RN is Primary Nurse. me1 12:19 Triage completed. me1 12:19 Arm band placed on Patient placed in an exam room. me1 12:23 Patient has correct armband on for positive identification. Bed in low position. Call ak1 light in reach. Side rails up X 1. Provided Education on: POC. Verbalized understanding. . 12:23 No provider procedures requiring assistance completed. me1 12:27 Ashli Reyes PA-C is PHCP. sb4 12:27 Joshua Taylor DO is Attending Physician. sb4 13:28 CT Facial Bones W/O Con In Process Unspecified. EDMS 13:28 Head Brain Wo Cont CT In Process Unspecified. EDMS 13:56 Patient did not have IV access during this emergency room visit. me1 Administered Medications: 12:40 Drug: Acetaminophen PO 1000 mg PO once Route: PO; me1 13:25 Follow up: Response: No adverse reaction; Pain is decreased me1 Medication: 13:55 VIS not applicable for this client. me1 Outcome: 13:40 Discharge ordered by MD. sb4 13:55 Discharged to home ambulatory, with significant other, me1 13:55 Condition: stable 13:55 Discharge instructions given to patient, significant other, Instructed on discharge instructions, follow up and referral plans. Demonstrated understanding of instructions, follow-up care, 13:56 Patient left the ED. me1 Signatures: Dispatcher [employer] Ashli Caceres PA-C PA-C sb4 Norma Aceves, RN RN me1
--- NOTE | 2023-05-04 13:41 | EDPHYS ---
Physician Documentation [facility] Name: Tyshawn Ray Age: 37 yrs Sex: Male : 1985 Arrival Date: 05/04/2023 Time: 12:07 Bed 12 Private MD: ED Physician Joshua Taylor HPI: 05/04 18:11 This 37 yrs old Black Male presents to ER via EMS with complaints of facial trauma. sb4 18:11 The patient or guardian reports injury, pain, swelling, tenderness. The complaints sb4 affect the left cheek, left eye and mouth. Context of injury: The problem was sustained at work, resulted from a direct blow, a heavy object. Onset: The symptoms/episode began/occurred just prior to arrival. Associated signs and symptoms: Loss of consciousness: This patient did not experience any loss of consciousness. Pertinent positives: headache, Pertinent negatives: double vision, nausea, neck pain, seizure, tinnitus, vomiting, weakness in extremities, generalized weakness. The patient has not experienced similar symptoms in the past. The patient has not recently seen a physician. Historical: - Allergies: 12:19 No Known Allergies; me1 - PMHx: 12:19 diabetes mellitus; Hypertensive disorder; me1 - PSHx: 12:19 None; me1 - Immunization history:: Adult Immunizations not up to date. - Social history:: Smoking status: Patient denies any tobacco usage or history of. ROS: 18:11 Constitutional: Negative for fever, chills, and weight loss, sb4 18:11 Skin: Positive for facial swelling/pain, 18:11 All other systems are negative, Exam: 18:11 Constitutional: This is a well developed, well nourished patient who is awake, alert, sb4 and in no acute distress. Eyes: Extra-ocular motions intact. Periorbital areas with no swelling, redness, or edema. ENT: Mucous membranes moist. Cardiovascular: Regular rate and rhythm with a normal S1 and S2. Respiratory: Lungs have equal breath sounds bilaterally, clear to auscultation and percussion. No rales, rhonchi or wheezes noted. No increased work of breathing, no retractions or nasal flaring. Abdomen/GI: Soft, non-tender, no distension. Skin: Warm, dry with normal turgor. Normal color with no rashes, no lesions, and no evidence of cellulitis. MS/ Extremity: Pulses equal, no cyanosis. Neurovascular intact. Full, normal range of motion. Neuro: Awake and alert, GCS 15, oriented to person, place, time, and situation. Motor strength 5/5 in all extremities. Sensory grossly intact. 18:11 Head/face: Noted is left eye swollen, hematoma noted to left cheek with tenderness, superficial 0.5 cm laceration left lower lip. Vital Signs: 12:16 BP 167 / 102; Pulse 81; Resp 19; Temp 98.4(O); Pulse Ox 99% on R/A; Weight 120.2 kg; me1 Height 5 ft. 9 in. ; Pain 7/10; 13:52 BP 169 / 98; Pulse 97; Resp 17; Pulse Ox 99% on R/A; me1 12:16 Body Mass Index 39.13 (120.20 kg, 175.26 cm) me1 12:16 Pain Scale: Adult me1 [place] Coma Score: 18:11 Eye Response: spontaneous(4). Motor Response: obeys commands(6). Verbal Response: sb4 oriented(5). Total: 15. 18:11 Eye Response: spontaneous(4). Motor Response: obeys commands(6). Verbal Response: sb4 oriented(5). Total: 15. MDM: 12:27 Patient medically screened. sb4 18:11 Differential diagnosis: Contusion of Hematoma on Laceration of Intracranial bleed- sb4 Concussion cerebral contusion. Data reviewed: vital signs, nurses notes, EMS record, radiologic studies, and as a result, I will discharge patient. Care significantly affected by the following chronic conditions: Diabetes, Hypertension. Counseling: I had a detailed discussion with the patient and/or guardian regarding the historical points, exam findings, and any diagnostic results supporting the discharge/admit diagnosis, radiology results, to return to the emergency department if symptoms worsen or persist or if there are any questions or concerns that arise at home. 05/04 12:27 Order name: CT Facial Bones W/O Con; Complete Time: 13:38 sb4 05/04 12:27 Order name: Head Brain Wo Cont CT; Complete Time: 13:35 sb4 Administered Medications: 12:40 Drug: Acetaminophen PO 1000 mg PO once Route: PO; me1 13:25 Follow up: Response: No adverse reaction; Pain is decreased me1 Disposition: 19:54 I was immediately available on-site in the Emergency Department for consultation in the ms3 care of the patient. Disposition Summary: 05/04/23 13:40 Discharge Ordered Notes: Location: Home sb4 Problem: new sb4 Symptoms: are unchanged sb4 Condition: Stable sb4 Diagnosis - facial contusions s/p trauma sb4 Followup: sb4 - With: Emergency Department - When: As needed - Reason: Trouble breathing, Worsening of condition Discharge Instructions: - Discharge Summary Sheet sb4 - Facial or Scalp Contusion, [id number] sb4 Forms: - Medication Reconciliation Form sb4 - Thank You Letter sb4 - Antibiotic Education sb4 - Prescription Opioid Use sb4 - Patient Portal Instructions sb4 - Leadership Thank You Letter sb4 Signatures: Dispatcher [employer] EDJoshua Duran, DO ms3 Ashli Reyes PA-C PA-C sb4 Norma Aceves, RN RN me1
[2023-05-04 14:35] VITALS: TEMP 98.4; O2SAT 99
[2023-05-04 14:37] VITALS: BP 169/98
== END 2023-05-04 13:56 | disposition home or self-care (01) ==
LOC: ER 12:07
DX: S00.83XA Contusion of other part of head, initial encounter (principal); W22.8XXA Striking against or struck by other objects, initial encounter
CPT/HCPCS: 70450; 70486; 76377; 99283